=== PATIENT | female | born 1945 | race Caucasian/White ===

== ENCOUNTER 2023-01-14 10:15 | Emergency (ER) | payer OTHER ==
--- OUTSIDE RECORDS SUMMARY | 2023-01-14 10:33 | XMS REPORT | Continuity of Care Document ---
:1945 Author Organization [facility] Address [address] [place] [address] [address] [place] [address] Care Team Providers Name Role Phone Sloan Piper MD Primary Care Physician Carolyn Mendoza Attending Clinician Lab, Ang - Db Attending Clinician Unavailable CAROLYN HUNT Attending Clinician Unavailable Doctor Unassigned, [place] Attending Clinician Unavailable SONJA WHIPPLE Attending Clinician Unavailable SONJA WHIPPLE Attending Clinician Unavailable Mar Perez MD Attending Clinician MAR PEREZ Attending Clinician Unavailable Sonja Whipple DO Attending Clinician KIA HDEZ Attending Clinician Unavailable Kia Hdez MD Attending Clinician Kong Esteban MD Attending Clinician ANNITA EDWARD Attending Clinician Unavailable Annita Edward MD Attending Clinician Cbc, Medicare Wellness Christian Morgan Attending Clinician Unavailab Flora Puri LVN Attending Clinician Unavailable Hussain Viramontes Attending Clinician Unavailable KONG ESTEBAN Attending Clinician Unavailable KONG ESTEBAN Attending Clinician Unavailable , [facility] Bed Attending Clinician Unavailable Joel Vargas Attending Clinician Only, [facility] Test Attending Clinician Unavailable Sloan Piper MD Attending Clinician [facility] Sleep Lab Attending Clinician Unavailable MARISELA NAPIER Attending Clinician Unavailable Marisela Napier MD Attending Clinician Stoney Lee DO Attending Clinician STONEY LEE Attending Clinician Unavailable Alanis Valenzuela RN Attending Clinician Unavailable MD NATHAN CERRATO Attending Clinician Unavailable NATHAN CERRATO Attending Clinician Unavailable MAR PEREZ Admitting Clinician Unavailable ANNITA EDWARD Admitting Clinician Unavailable STONEY LEE Admitting Clinician Unavailable MD NATHAN CERRATO Admitting Clinician Unavailable Payers Payer Name Policy Type Policy Number Effective Date Expiration Date Magaly schroeder [employer] [id number] 2020 MEDICARE ADVANTAGE 00:00:00 Problems Condition Condition Condition Status Onset Resolution Last Treating Co mments Source Name Details Category Date Date Treatment Clinician Date Essential Essential Disease Active 2021-04 Uni vers hypertensi hypertensi 0-06 it y of on on 00:00: [address] Morbid Morbid Disease Active 2021-04 Univers obesity obesity 0-06 ity of 00:00: [address] ROSELINE ROSELINE Disease Active 2021-04 Univers (obstructi (obstructi 0-06 it y of ve sleep ve sleep 00:00: [place] apnea) apnea) 00 [facility] Vitamin D Vitamin D Disease Active 2019-04 Overview: Methodi deficiency deficiency 2-[address] 00:00: [facility] 00 note l might be different from the original. 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 Sister Obesity Obesity Disease Active [facility]i 01-15 st 00:00: Hospita 00 l Osteopenia Osteopenia Disease Active Overview : [facility] [address] 00:00: g of this [facility]ospita 00 note l might be different from the original. 02/12 DXA; No evidence of osteopeni a or osteoporo sis History of History of Disease Active 2014-04 M ethodi bariatric bariatric 0-28 st surgery surgery 00:00: Hospita 00 l Hyperlipid Hyperlipid Disease Active M ethodi emia emia 8 st 00:00: Hospita 00 l HTN HTN Disease Active Overview: Method i (hypertens (hypertens 2-[address] ion) ion) 00:00: g of this Hospita 00 note l might be different from the original. Overview: Converted from [facility] y:Descrip tion - HYPERTENS ION, BENIGN No known No known Disease Unive rs active active ity of problems problems [facility] Allergies, Adverse Reactions, Alerts Allergy Allergy Status Severity Reaction(s) Onset Inactive Treating Comm ents Source Name Type Date Date Clinician AMOXICIL DRUG Active N/V 2021-04 Univers RICO-POT 1-14 ity of CLAVULAN 00:00: [place] ATE 00 Medical Branch Amoxicil Propensi Active Nausea 2021-04 Univer s rico-Pot ty to and/or 14 ity of Clavulan adverse Vomiting 00:00: [place] ate reaction 00 Medical s Branch Aspirin Drug Active Other - See 'feels Univ ers Allergy comments 6-18 funny" ity of 00:00: [place] 00 Medical Branch ASPIRIN DRUG Active Low Other-Cmnt Unive rs INGREDI 6-18 ity of 00:00: [place] 00 Medical Branch Aspartam Propensi Active Headache Meth jacque e ty to 15 st adverse 00:00: Hospita reaction 00 l s to drug NITROFUR DRUG Active Other-Cmnt 2017-04 Univ ers ANTOIN 0-26 ity of MONOHYD/ 00:00: [place] M-CRYST 00 Medical Branch Nitrofur Propensi Active Other - See 2017-04 Nausea U nivers antoin ty to comments 0-26 ity of Monohyd/ adverse 00:00: [place] M-Cryst reaction 00 Medical s Branch Nitrofur Propensi Active 2017-04 Nausea Method i antoin ty to 0-26 st Monohyd/ adverse 00:00: Hospita M-Cryst reaction 00 l s to drug Cephalex Propensi Active Rash Method i in ty to 5 st adverse 00:00: Hospita reaction 00 l s to drug Aspartam Propensi Active Other - See 2014-04 U nivers e ty to comments 0-22 ity of adverse 00:00: [place] reaction 00 Medical s Branch ASPARTAM DRUG Active Med Anaphylaxis 2014-04 Uni vers E INGREDI 0- ity of 00:00: [place] 00 Medical Branch CEPHALEX DRUG Active High Hives Univers IN INGREDI 05-04 ity of 00:00: [place] 00 Medical Branch Cephalex Drug Active Rash CEPHALEXI Unive rs in Allergy 05-04 N: - ity of 00:00: Converted [place] 00 from Medical [facility] y Aspirin Propensi Active Other (See 'feels Met hodi ty to Comments) funny" st adverse Hospita reaction l s to drug Family History Family Member Diagnosis Comments Start Date Stop Date Source Natural sister Other [facility] Natural sister Breast cancer [facility] Natural sister [facility] Natural sister Thyroid cancer [facility] Natural brother Dementia [facility] Natural brother Heart disease Method [facility] father [facility] Natural mother Heart disease [facility] Social History Social Habit Start Date Stop Date Quantity Comments Source History SDOH University o f Alcohol Std Drinks [place] [facility] History SDOH University o f Alcohol Binge [place] [facility] al Branch History SDMA University o f Alcohol Comment [facility] ical Branch Gender identity [facility] Sexual orientation Method is Hospital Exposure to 2022-03-01 2022-03-11 Not sure University of SARS-CoV-2 (event) 00:00:00 10:43:00 [facility] Tobacco use and 2022-01-31 2022-01-31 Smokeless Universit y of exposure 00:00:00 00:00:00 tobacco non-user [facility] dical Branch History SDOH 2021-06-13 2021-06-13 1 University o f Alcohol Frequency 00:00:00 [facility] Alcohol intake 2020-03-31 2020-03-31 Current [facility] 00:00:00 00:00:00 non-drinker of Hospital alcohol (finding) History of Social 2020-03-31 2020-03-[address] function 00:00:00 00:00:00 Hospital Sex [birth year] At [birth year] [facility] 00:[facility]:00 Hospital Smoking Status Start Date Stop Date Source Never smoked tobacco [facility] Medications Ordered Filled Start Stop Current Ordering Indication Dosage Frequency Signature Comments Components Source Medication Medication Date Date Medication? Clinician (SIG) Name Name acetaminochato 0 Yes [id number] 500mg Take 1 Univers en (TYLENOL 8-16 tablet by ity of EXTRA 00:00: mouth [place] STRENGTH) 00 every 6 Medical 500 mg (six) Branch tablet hours as needed for Pain. acetaminoph 0 Yes [id number] 500mg Take 1 Univers en (TYLENOL 8-16 tablet by ity of EXTRA 00:00: mouth [place] STRENGTH) 00 every 6 Medical 500 mg (six) Branch tablet hours as needed for Pain. acetaminoph 0 Yes [id number] 500mg Take 1 Univers en (TYLENOL 8-16 tablet by ity of EXTRA 00:00: mouth [place] STRENGTH) 00 every 6 Medical 500 mg (six) Branch tablet hours as needed for Pain. acetaminoph 0 Yes [id number] 500mg Take 1 Univers en (TYLENOL 8-16 tablet by ity of EXTRA 00:00: mouth [place] STRENGTH) 00 every 6 Medical 500 mg (six) Branch tablet hours as needed for Pain. acetaminoph 2022-0 Yes [id number] 500mg Take 1 Univers en (TYLENOL 8-16 tablet by ity of EXTRA 00:00: mouth [place] STRENGTH) 00 every 6 Medical 500 mg (six) Branch tablet hours as needed for Pain. acetaminoph 0 Yes [id number] 500mg Take 1 Univers en (TYLENOL 8-16 tablet by ity of EXTRA 00:00: mouth [place] STRENGTH) 00 every 6 Medical 500 mg (six) Branch tablet hours as needed for Pain. methylPREDN 2022-0 Yes [id number] Take by Univers ISolone 7-26 mouth ity of (MEDROL, 00:00: SEE-INSTRU [place] AWILDA,) 4 mg 00 CTIONS. Medica l tablets follow Branch package directions losartan 2022-0 Yes [id number] 100mg Take 1 Un kendra 100 mg 7-26 tablet by ity of tablet 00:00: mouth [place] 00 every Medical morning. Branch amLODIPine 3-0 Yes [id number] 10mg Take 1 U nivers 10 mg 7-26 tablet by ity of tablet 00:00: mouth [place] 00 every Medical morning. Branch methylPREDN 3-0 Yes [id number] Take by Univers ISolone 7-26 mouth ity of (MEDROL, 00:00: SEE-INSTRU [place],) 4 mg 00 CTIONS. Medica l tablets follow Branch package directions losartan 2022-0 Yes [id number] 100mg Take 1 Un kendra 100 mg 7-26 tablet by ity of tablet 00:00: mouth [place] 00 every Medical morning. Branch amLODIPine 2022-0 Yes [id number] 10mg Take 1 U nivers 10 mg 7-26 tablet by ity of tablet 00:00: mouth [place] 00 every Medical morning. Branch methylPREDN 2022-0 Yes [id number] Take by Univers ISolone 7-26 mouth ity of (MEDROL, 00:00: SEE-INSTRU [place],) 4 mg 00 CTIONS. Medica l tablets follow Branch package directions losartan 2022-0 Yes [id number] 100mg Take 1 Un kendra 100 mg 7-26 tablet by ity of tablet 00:00: mouth [place] 00 every Medical morning. Branch amLODIPine 2022-0 Yes [id number] 10mg Take 1 U nivers 10 mg 7-26 tablet by ity of tablet 00:00: mouth [place] 00 every Medical morning. Branch methylPREDN 3-0 Yes [id number] Take by Univers ISolone 7-26 mouth ity of (MEDROL, 00:00: SEE-INSTRU [place],) 4 mg 00 CTIONS. Medica l tablets follow Branch package directions losartan 3-0 Yes [id number] 100mg Take 1 Un kendra 100 mg 7-26 tablet by ity of tablet 00:00: mouth [place] 00 every Medical morning. Branch amLODIPine 3-0 Yes [id number] 10mg Take 1 U nivers 10 mg 7-26 tablet by ity of tablet 00:00: mouth [place] 00 every Medical morning. Branch methylPREDN 3-0 Yes [id number] Take by Univers ISolone 7-26 mouth ity of (MEDROL, 00:00: SEE-INSTRU [place],) 4 mg 00 CTIONS. Medica l tablets follow Branch package directions losartan 2022-0 Yes [id number] 100mg Take 1 Un kendra 100 mg 7-26 tablet by ity of tablet 00:00: mouth [place] 00 every Medical morning. Branch amLODIPine 2022-0 Yes [id number] 10mg Take 1 U nivers 10 mg 7-26 tablet by ity of tablet 00:00: mouth [place] 00 every Medical morning. Branch methylPREDN 2022-0 Yes [id number] Take by Univers ISolone 7-26 mouth ity of (MEDROL, 00:00: SEE-INSTRU [place],) 4 mg 00 CTIONS. Medica l tablets follow Branch package directions losartan 2022-0 Yes [id number] 100mg Take 1 Un kendra 100 mg 7-26 tablet by ity of tablet 00:00: mouth [place] 00 every Medical morning. Branch amLODIPine 2022-0 Yes [id number] 10mg Take 1 U nivers 10 mg 7-26 tablet by ity of tablet 00:00: mouth [place] 00 every Medical morning. Branch losartan 2022-0 Yes [id number] 100mg Take 1 Un kendra 100 mg 7-26 tablet by ity of tablet 00:00: mouth [place] 00 every Medical morning. Branch amLODIPine 2022-0 Yes [id number] 10mg Take 1 U nivers 10 mg 7-26 tablet by ity of tablet 00:00: mouth [place] 00 every Medical morning. Branch losartan 2022-0 Yes [id number] 100mg Take 1 Un ekndra 100 mg 7-26 tablet by ity of tablet 00:00: mouth [place] 00 every Medical morning. Branch amLODIPine 3-0 Yes [id number] 10mg Take 1 U nivers 10 mg 7-26 tablet by ity of tablet 00:00: mouth [place] 00 every Medical morning. Branch losartan 3-0 Yes [id number] 100mg Take 1 Un kendra 100 mg 7-26 tablet by ity of tablet 00:00: mouth [place] 00 every Medical morning. Branch amLODIPine 3-0 Yes [id number] 10mg Take 1 U nivers 10 mg 7-26 tablet by ity of tablet 00:00: mouth [place] 00 every Medical morning. Branch losartan 3-0 Yes [id number] 100mg Take 1 Un kendra 100 mg 7-26 tablet by ity of tablet 00:00: mouth [place] 00 every Medical morning. Branch amLODIPine 2022-0 Yes [id number] 10mg Take 1 U nivers 10 mg 7-26 tablet by ity of tablet 00:00: mouth [place] 00 every Medical morning. Branch losartan 2022-0 Yes [id number] 100mg Take 1 Un kendra 100 mg 7-26 tablet by ity of tablet 00:00: mouth [place] 00 every Medical morning. Branch amLODIPine 2022-0 Yes [id number] 10mg Take 1 U nivers 10 mg 7-26 tablet by ity of tablet 00:00: mouth [place] 00 every Medical morning. Branch losartan 2022-0 Yes [id number] 100mg Take 1 Un kendra 100 mg 7-26 tablet by ity of tablet 00:00: mouth [place] 00 every Medical morning. Branch amLODIPine 2022-0 Yes [id number] 10mg Take 1 U nivers 10 mg 7-26 tablet by ity of tablet 00:00: mouth [place] 00 every Medical morning. Branch losartan 2022-0 Yes [id number] 100mg Take 1 Un kendra 100 mg 7-26 tablet by ity of tablet 00:00: mouth [place] 00 every Medical morning. Branch amLODIPine 2022-0 Yes [id number] 10mg Take 1 U nivers 10 mg 7-26 tablet by ity of tablet 00:00: mouth [place] 00 every Medical morning. Branch methylPREDN 2022-2022- No [id number] Take by [facility] 11-20 mouth ity of (MEDROL, 00:00: 00:00 [place] 4 mg 00 :00 CTIONS. Medica l tablets follow Branch package directions methylPREDN 2022- No [id number] Take by [facility] 11-20 mouth ity of (MEDROL, 00:00: 00:00 [place] 4 mg 00 :00 CTIONS. Medica l tablets follow Branch package directions LOSARTAN 2022-0 Yes [id number] TAKE 1 Uni vers 100 mg 6-23 TABLET BY ity of tablet 00:00: MOUTH [place] 00 EVERY DAY Medical IN THE Branch MORNING LOSARTAN 2022-0 Yes [id number] TAKE 1 Uni vers 100 mg 6-23 TABLET BY ity of tablet 00:00: MOUTH [place] 00 EVERY DAY Medical IN THE Branch MORNING LOSARTAN 2022-0 2022- No [id number] TAKE 1 Un kendra 100 mg 6-23 07-26 TABLET BY ity of tablet 00:00: 00:00 MOUTH [place] 00 :00 EVERY DAY Medical IN THE [place] MORNING LOSARTAN 2022-0 2022- No [id number] TAKE 1 Un kendra 100 mg 6-23 07-26 TABLET BY ity of tablet 00:00: 00:00 MOUTH [place] 00 :00 EVERY DAY Medical IN THE [place] MORNING amLODIPine 2022-0 Yes [id number] 10mg TAKE 1 U nivers 10 mg 5-18 TABLET BY ity of tablet 00:00: MOUTH [place] 00 EVERY Medical MORNING. [place] MUST BE SEEN FOR FURTHER REFILLS amLODIPine 0 Yes [id number] 10mg TAKE 1 U nivers 10 mg 5-18 TABLET BY ity of tablet 00:00: MOUTH [place] 00 EVERY Medical MORNING. [place] MUST BE SEEN FOR FURTHER REFILLS amLODIPine 0 Yes [id number] 10mg TAKE 1 U nivers 10 mg 5-18 TABLET BY ity of tablet 00:00: MOUTH [place] 00 EVERY Medical MORNING. [place] MUST BE SEEN FOR FURTHER REFILLS amLODIPine 0 2022- No [id number] 10mg TAKE 1 Univers 10 mg 5-18 07-26 TABLET BY ity of tablet 00:00: 00:00 MOUTH [place] 00 :00 EVERY Medical MORNING. [place] MUST BE SEEN FOR FURTHER REFILLS amLODIPine 0 2022- No [id number] 10mg TAKE 1 Univers 10 mg 5-18 07-26 TABLET BY ity of tablet 00:00: 00:00 MOUTH [place] 00 :00 EVERY Medical MORNING. [place] MUST BE SEEN FOR FURTHER REFILLS LOSARTAN 0 Yes [id number] TAKE 1 Uni vers 100 mg 5-10 TABLET BY ity of tablet 00:00: MOUTH [place] 00 EVERY DAY Medical IN THE [place] MORNING LOSARTAN 2022-0 Yes [id number] TAKE 1 Uni vers 100 mg 5-10 TABLET BY ity of tablet 00:00: MOUTH [place] 00 EVERY DAY Medical IN THE [place] MORNING LOSARTAN 2022-0 2022- No [id number] TAKE 1 Un kendra 100 mg 5-10 06-23 TABLET BY ity of tablet 00:00: 00:00 MOUTH [place] 00 :00 EVERY DAY Medical IN THE [place] MORNING LOSARTAN 2022-0 2022- No [id number] TAKE 1 Un kendra 100 mg 5-10 06-23 TABLET BY ity of tablet 00:00: 00:00 MOUTH [place] 00 :00 EVERY DAY Medical IN THE [place] MORNING amLODIPine 2022-0 Yes [id number] 10mg Take 1 U nivers 10 mg 5-09 tablet by ity of tablet 00:00: mouth [place] 00 every Medical morning. [place] MUST BE SEEN FOR FURTHER REFILLS amLODIPine 2022-0 Yes [id number] 10mg Take 1 U nivers 10 mg 5-09 tablet by ity of tablet 00:00: mouth [place] 00 every Medical morning. [place] MUST BE SEEN FOR FURTHER REFILLS AMLODIPINE 2022-0 Yes [id number] TAKE 1 U nivers 10 mg 4-12 TABLET BY ity of tablet 00:00: MOUTH [place] 00 EVERY DAY Medical IN THE [place] MORNING LOSARTAN 2022-0 Yes [id number] TAKE 1 Uni vers 100 mg 4-12 TABLET BY ity of tablet 00:00: MOUTH [place] 00 EVERY DAY Medical IN THE [facility] AMLODIPINE 2022-0 Yes [id number] TAKE 1 U nivers 10 mg 4-12 TABLET BY ity of tablet 00:00: MOUTH [place] 00 EVERY DAY Medical IN THE [facility] LOSARTAN 2022-0 Yes [id number] TAKE 1 Uni vers 100 mg 4-12 TABLET BY ity of tablet 00:00: MOUTH [place] 00 EVERY DAY Medical IN THE [facility] AMLODIPINE 2022-0 Yes [id number] TAKE 1 U nivers 10 mg 4-12 TABLET BY ity of tablet 00:00: MOUTH [place] 00 EVERY DAY Medical IN THE [facility] LOSARTAN 2022-0 Yes [id number] TAKE 1 Uni vers 100 mg 4-12 TABLET BY ity of tablet 00:00: MOUTH [place] 00 EVERY DAY Medical IN THE [facility] LOSARTAN 2022-0 Yes [id number] TAKE 1 Uni vers 100 mg 4-12 TABLET BY ity of tablet 00:00: MOUTH [place] 00 EVERY DAY Medical IN THE [place] MORNING LOSARTAN 2022-0 3- No [id number] TAKE 1 Un kendra 100 mg 4-12 05-10 TABLET BY ity of tablet 00:00: 00:00 MOUTH [place] 00 :00 EVERY DAY Medical IN THE [place] MORNING AMLODIPINE 2022-0 3- No [id number] TAKE 1 Univers 10 mg 4-12 05-09 TABLET BY ity of tablet 00:00: 00:00 MOUTH [place] 00 :00 EVERY DAY Medical IN THE [facility] calcium 2021- Yes 600mg Take 600 Unive rs carbonate 1-14 mg by ity of 600 mg 11:06: mouth. [place] calcium 17 Medical (1,500 mg) Branch tablet calcium 2021-04 Yes 600mg Take 600 Unive rs carbonate 1-14 mg by ity of 600 mg 11:06: mouth. [place] calcium 17 Medical (1,500 mg) Branch tablet calcium 2021-04 Yes 600mg Take 600 Unive rs carbonate 1-14 mg by ity of 600 mg 11:06: mouth. [place] calcium 17 Medical (1,500 mg) Branch tablet calcium 2021-04 Yes 600mg Take 600 Unive rs carbonate 1-14 mg by ity of 600 mg 11:06: mouth. [place] calcium 17 Medical (1,500 mg) Branch tablet calcium 2021-04 Yes 600mg Take 600 Unive rs carbonate 1-14 mg by ity of 600 mg 11:06: mouth. [place] calcium 17 Medical (1,500 mg) Branch tablet calcium 2021-04 Yes 600mg Take 600 Unive rs carbonate 1-14 mg by ity of 600 mg 11:06: mouth. [place] calcium 17 Medical (1,500 mg) Branch tablet calcium 2021-04 Yes 600mg Take 600 Unive rs carbonate 1-14 mg by ity of 600 mg 11:06: mouth. [place] calcium 17 Medical (1,500 mg) Branch tablet calcium 2021-04 Yes 600mg Take 600 Unive rs carbonate 1-14 mg by ity of 600 mg 11:06: mouth. [place] calcium 17 Medical (1,500 mg) Branch tablet calcium 2021-04 Yes 600mg Take 600 Unive rs carbonate 1-14 mg by ity of 600 mg 11:06: mouth. [place] calcium 17 Medical (1,500 mg) Branch tablet calcium 2021-04 Yes 600mg Take 600 Unive rs carbonate 1-14 mg by ity of 600 mg 11:06: mouth. [place] calcium 17 Medical (1,500 mg) Branch tablet calcium 2021-04 Yes 600mg Take 600 Unive rs carbonate 1-14 mg by ity of 600 mg 11:06: mouth. [place] calcium 17 Medical (1,500 mg) Branch tablet calcium 2021-04 Yes 600mg Take 600 Unive rs carbonate 1-14 mg by ity of 600 mg 11:06: mouth. [place] calcium 17 Medical (1,500 mg) Branch tablet calcium 2021-04 Yes 600mg Take 600 Unive rs carbonate 1-14 mg by ity of 600 mg 11:06: mouth. [place] calcium 17 Medical (1,500 mg) Branch tablet calcium 2021-04 Yes 600mg Take 600 Unive rs carbonate 1-14 mg by ity of 600 mg 11:06: mouth. [place] calcium 17 Medical (1,500 mg) Branch tablet calcium 2021-04 Yes 600mg Take 600 Unive rs carbonate 1-14 mg by ity of 600 mg 11:06: mouth. [place] calcium 17 Medical (1,500 mg) Branch tablet calcium 2021-04 Yes 600mg Take 600 Unive rs carbonate 1-14 mg by ity of 600 mg 11:06: mouth. [place] calcium 17 Medical (1,500 mg) Branch tablet calcium 2021-04 Yes 600mg Take 600 Unive rs carbonate 1-14 mg by ity of 600 mg 11:06: mouth. [place] calcium 17 Medical (1,500 mg) Branch tablet calcium 2021-04 Yes 600mg Take 600 Unive rs carbonate 1-14 mg by ity of 600 mg 11:06: mouth. [place] calcium 17 Medical (1,500 mg) Branch tablet calcium 2021-04 Yes 600mg Take 600 Unive rs carbonate 1-14 mg by ity of 600 mg 11:06: mouth. [place] calcium 17 Medical (1,500 mg) Branch tablet calcium 2021-04 Yes 600mg Take 600 Unive rs carbonate 1-14 mg by ity of 600 mg 11:06: mouth. [place] calcium 17 Medical (1,500 mg) Branch tablet calcium 2021-04 Yes 600mg Take 600 Unive rs carbonate 1-14 mg by ity of 600 mg 11:06: mouth. [place] calcium 17 Medical (1,500 mg) Branch tablet calcium 2021-04 Yes 600mg Take 600 Unive rs carbonate 1-14 mg by ity of 600 mg 11:06: mouth. [place] calcium 17 Medical (1,500 mg) Branch tablet calcium 2021-04 Yes 600mg Take 600 Unive rs carbonate 1-14 mg by ity of 600 mg 11:06: mouth. [place] calcium 17 Medical (1,500 mg) Branch tablet calcium 2021-04 Yes 600mg Take 600 Unive rs carbonate 1-14 mg by ity of 600 mg 11:06: mouth. [place] calcium 17 Medical (1,500 mg) Branch tablet calcium 2021-04 Yes 600mg Take 600 Unive rs carbonate 1-14 mg by ity of 600 mg 11:06: mouth. [place] calcium 17 Medical (1,500 mg) Branch tablet calcium 2021-04 Yes 600mg Take 600 Unive rs carbonate 1-14 mg by ity of 600 mg 11:06: mouth. [place] calcium 17 Medical (1,500 mg) Branch tablet calcium 2021-04 Yes 600mg Take 600 Unive rs carbonate 1-14 mg by ity of 600 mg 11:06: mouth. [place] calcium 17 Medical (1,500 mg) Branch tablet amoxicillin 2021-04 Yes TAKE 1 Univ ers 500 mg 1-03 CAPSULE BY ity of capsule 00:00: MOUTH [place] 00 EVERY 8 Medical HOURS Branch traMADoL 50 2021-04 Yes TAKE 1 Univ ers mg tablet 1-03 TABLET BY ity o f 00:00: MOUTH [place] 00 EVERY 4 TO Medical 6 HOURS. Branch DO NIT EXCEED 400 MG PER DAY amoxicillin 2021-04 Yes TAKE 1 Univ ers 500 mg 1-03 CAPSULE BY ity of capsule 00:00: MOUTH [place] 00 EVERY 8 Medical HOURS Branch traMADoL 50 2021-04 Yes TAKE 1 Univ ers mg tablet 1-03 TABLET BY ity o f 00:00: MOUTH [place] 00 EVERY 4 TO Medical 6 HOURS. Branch DO NIT EXCEED 400 MG PER DAY amoxicillin 2021-04 Yes TAKE 1 Univ ers 500 mg 1-03 CAPSULE BY ity of capsule 00:00: MOUTH [place] 00 EVERY 8 Medical HOURS Branch traMADoL 50 2021-04 Yes TAKE 1 Univ ers mg tablet 1-03 TABLET BY ity o f 00:00: MOUTH [place] 00 EVERY 4 TO Medical 6 HOURS. Branch DO NIT EXCEED 400 MG PER DAY amoxicillin 2021-04 Yes TAKE 1 Univ ers 500 mg 1-03 CAPSULE BY ity of capsule 00:00: MOUTH [place] 00 EVERY 8 Medical HOURS Branch traMADoL 50 2021-04 Yes TAKE 1 Univ ers mg tablet 1-03 TABLET BY ity o f 00:00: MOUTH [place] 00 EVERY 4 TO Medical 6 HOURS. Branch DO NIT EXCEED 400 MG PER DAY amoxicillin 2021-04 Yes TAKE 1 Univ ers 500 mg 1-03 CAPSULE BY ity of capsule 00:00: MOUTH [place] 00 EVERY 8 Medical HOURS Branch traMADoL 50 2021-04 Yes TAKE 1 Univ ers mg tablet 1-03 TABLET BY ity o f 00:00: MOUTH [place] 00 EVERY 4 TO Medical 6 HOURS. Branch DO NIT EXCEED 400 MG PER DAY amoxicillin 2021-04 Yes TAKE 1 Univ ers 500 mg 1-03 CAPSULE BY ity of capsule 00:00: MOUTH [place] 00 EVERY 8 Medical HOURS Branch traMADoL 50 2021-04 Yes TAKE 1 Univ ers mg tablet 1-03 TABLET BY ity o f 00:00: MOUTH [place] 00 EVERY 4 TO Medical 6 HOURS. Branch DO NIT EXCEED 400 MG PER DAY amoxicillin 2021-04 Yes TAKE 1 Univ ers 500 mg 1-03 CAPSULE BY ity of capsule 00:00: MOUTH [place] 00 EVERY 8 Medical HOURS Branch traMADoL 50 2021-04 Yes TAKE 1 Univ ers mg tablet 1-03 TABLET BY ity o f 00:00: MOUTH [place] 00 EVERY 4 TO Medical 6 HOURS. Branch DO NIT EXCEED 400 MG PER DAY amoxicillin 2021-04 Yes TAKE 1 Univ ers 500 mg 1-03 CAPSULE BY ity of capsule 00:00: MOUTH [place] 00 EVERY 8 Medical HOURS Branch traMADoL 50 2021-04 Yes TAKE 1 [facility] mg tablet 1-03 TABLET BY [facility] o f 00:00: MOUTH [place] 00 EVERY 4 TO Medical 6 HOURS. Branch DO NIT EXCEED 400 MG PER DAY amoxicillin 2021-04 Yes TAKE 1 [facility] 500 mg 1-03 CAPSULE BY [facility] capsule 00:00: MOUTH [place] 00 EVERY 8 Medical HOURS Branch traMADoL 50 2021-04 Yes TAKE 1 [facility] mg tablet 1-03 TABLET BY [facility] f 00:00: MOUTH [place] 00 EVERY 4 TO Medical 6 HOURS. Branch DO NIT EXCEED 400 MG PER DAY amoxicillin 2021-04 Yes TAKE 1 [facility] 500 mg 1-03 CAPSULE BY [facility] capsule 00:00: MOUTH [place] 00 EVERY 8 Medical HOURS Branch traMADoL 50 2021-04 Yes TAKE 1 [facility] mg tablet 1-03 TABLET BY [facility] o f 00:00: MOUTH [place] 00 EVERY 4 TO Medical 6 HOURS. Branch DO NIT EXCEED 400 MG PER DAY amoxicillin 2021-04 Yes TAKE 1 [facility] 500 mg 1-03 CAPSULE BY [facility] capsule 00:00: MOUTH [place] 00 EVERY 8 Medical HOURS Branch traMADoL 50 2021-04 Yes TAKE 1 [facility] mg tablet 1-03 TABLET BY [facility] o f 00:00: MOUTH [place] 00 EVERY 4 TO Medical 6 HOURS. Branch DO NIT EXCEED 400 MG PER DAY amoxicillin 2021-04 Yes TAKE 1 [facility] 500 mg 1-03 CAPSULE BY [facility] capsule 00:00: MOUTH [place] 00 EVERY 8 Medical HOURS Branch traMADoL 50 2021-04 Yes TAKE 1 [facility] mg tablet -03 TABLET BY [facility] o f 00:00: MOUTH [place] 00 EVERY 4 TO Medical 6 HOURS. Branch DO NIT EXCEED 400 MG PER DAY amoxicillin 2021-04 Yes TAKE 1 [facility] 500 mg -03 CAPSULE BY [facility] capsule 00:00: MOUTH [place] 00 EVERY 8 Medical HOURS Branch traMADoL 50 2021-04 Yes TAKE 1 [facility] mg tablet -03 TABLET BY [facility] o f 00:00: MOUTH [place] 00 EVERY 4 TO Medical 6 HOURS. Branch DO NIT EXCEED 400 MG PER DAY amoxicillin 2021-04- No TAKE 1 [facility] vers 500 mg 04-30 CAPSULE BY [facility] capsule 00:00: 00:00 MOUTH [place] 00 :00 EVERY 8 Medical HOURS Branch traMADoL 50 2021-04- No TAKE 1 [facility] vers mg tablet 04-30 TABLET BY [facility] of 00:00: 00:00 MOUTH [place] 00 :00 EVERY 4 TO Medical 6 HOURS. Branch DO NIT EXCEED 400 MG PER DAY amoxicillin 2021-04- No TAKE 1 [facility] vers 500 mg 04-30 CAPSULE BY [facility] capsule 00:00: 00:00 MOUTH [place] 00 :00 EVERY 8 Medical HOURS Branch traMADoL 50 2021-04- No TAKE 1 [facility] vers mg tablet 04-30 TABLET BY [facility] of 00:00: 00:00 MOUTH [place] 00 :00 EVERY 4 TO Medical 6 HOURS. Branch DO NIT EXCEED 400 MG PER DAY diclofenac 2021-04 Yes [id number] 75mg Take 1 [facility] 75 mg EC 0-13 9100 tablet by [facility] tablet 00:00: mouth in [place] 00 the Medical morning Branch and 1 tablet in the evening. Take with meals. diclofenac 2021-04 Yes [id number] 75mg Take 1 [facility] 75 mg EC 0-13 9100 tablet by [facility] tablet 00:00: mouth in [place] 00 the Medical morning Branch and 1 tablet in the evening. Take with meals. diclofenac 2021-04 Yes [id number] 75mg Take 1 [facility] 75 mg EC 0-13 9100 tablet by [facility] of tablet 00:00: mouth in [place] 00 the Medical morning Branch and 1 tablet in the evening. Take with meals. diclofenac 2021-04 Yes [id number] 75mg Take 1 [facility] 75 mg EC 0-13 9100 tablet by [facility] of tablet 00:00: mouth in [place] [address] the Medical morning [place] and 1 tablet in the evening. Take with meals. diclofenac 2021-1 Yes [id number] 75mg Take 1 [facility] 75 mg EC 0-13 9100 tablet by [facility] of tablet 00:00: mouth in [place] [address] the Medical morning [place] and 1 tablet in the evening. Take with meals. diclofenac 2021-1 Yes [id number] 75mg Take 1 [facility] 75 mg EC 0-13 9100 tablet by [facility] of tablet 00:00: mouth in [place] [address] the [facility] morning [place] and 1 tablet in the evening. Take with meals. diclofenac 2021-1 Yes [id number] 75mg Take 1 [facility] 75 mg EC 0-13 9100 tablet by [facility] of tablet 00:00: mouth in [place] [address] the [facility] morning [place] and 1 tablet in the evening. Take with meals. diclofenac 2021-1 Yes [id number] 75mg Take 1 [facility] 75 mg EC 0-13 9100 tablet by it[facility] of tablet 00:00: mouth in [address] morning [place] and 1 tablet in the evening. Take with meals. diclofenac 2021-1 Yes [id number] 75mg Take 1 [facility] 75 mg EC 0-13 9100 tablet by it[facility] of tablet 00:00: mouth in [place] [address] the [facility] morning [place] and 1 tablet in the evening. Take with meals. diclofenac 2021-1 Yes [id number] 75mg Take 1 [facility] 75 mg EC 0-13 9100 tablet by it[facility] of tablet 00:00: mouth in [place] [address] the [facility] morning [place] and 1 tablet in the evening. Take with meals. diclofenac 2021-1 Yes [id number] 75mg Take 1 [facility] 75 mg EC 0-13 9100 tablet by it[facility] of tablet 00:00: mouth in [address] morning [place] and 1 tablet in the evening. Take with meals. diclofenac 2021-1 Yes [id number] 75mg Take 1 [facility] 75 mg EC 0-13 9100 tablet by [facility] of tablet 00:00: mouth in [address] morning [place] and 1 tablet in the evening. Take with meals. diclofenac 2021-1 Yes [id number] 75mg Take 1 [facility] 75 mg EC 0-13 9100 tablet by [facility] of tablet 00:00: mouth in [address] morning Branch and 1 tablet in the evening. Take with meals. diclofenac 2021-04 Yes [id number] 75mg Take 1 [facility] 75 mg EC 0-13 9100 tablet by it[facility] of tablet 00:00: mouth in [place] 00 the Medical morning Branch and 1 tablet in the evening. Take with meals. diclofenac 2021-04 Yes [id number] 75mg Take 1 [facility] 75 mg EC 0-13 9100 tablet by [facility] of tablet 00:00: mouth in [place] 00 the morning Branch and 1 tablet in the evening. Take with meals. diclofenac 2021-04- No [id number] 75mg Take 1 [facility] 75 mg EC 0-13 07-26 9100 tablet by ity o f tablet 00:00: 00:00 mouth in [place] 00 :00 the morning Branch and 1 tablet in the evening. Take with meals. diclofenac 2021-04- No [id number] 75mg Take 1 [facility] 75 mg EC 0-13 07-26 9100 tablet by ity o f tablet 00:00: 00:00 mouth in [place] 00 :00 the morning Branch and 1 tablet in the evening. Take with meals. amLODIPine 2021-04 Yes [id number] 10mg Take 1 [facility] 10 mg 0-06 tablet by [facility] of tablet 00:00: mouth in [place] the Medical morning. Branch losartan 2021-04 Yes [id number] 100mg Take 1 [facility] 100 mg 0-06 tablet by [facility] of tablet 00:00: mouth in [place] the Medical morning. Branch amLODIPine 2021-04 Yes [id number] 10mg Take 1 [facility] 10 mg 0-06 tablet by [facility] of tablet 00:00: mouth in [place] the Medical morning. Branch losartan 2021-04 Yes [id number] 100mg Take 1 [facility] 100 mg 0-06 tablet by it[facility] of tablet 00:00: mouth in [place] the Medical morning. Branch amLODIPine 2021-04 Yes [id number] 10mg Take 1 [facility] 10 mg 0-06 tablet by [facility] of tablet 00:00: mouth in [place] 00 the Medical morning. Branch losartan 2021-04 Yes [id number] 100mg Take 1 [facility] 100 mg 0-06 tablet by [facility] of tablet 00:00: mouth in [place] 00 the Medical morning. Branch amLODIPine 2021-04 Yes [id number] 10mg Take 1 [facility] 10 mg 0-06 tablet by [facility] of tablet 00:00: mouth in [place] the Medical morning. Branch losartan 2021-04 Yes [id number] 100mg Take 1 [facility] 100 mg 0-06 tablet by [facility] of tablet 00:00: mouth in [place] the Medical morning. Branch amLODIPine 2021-04 Yes [id number] 10mg Take 1 [facility] 10 mg 0-06 tablet by [facility] of tablet 00:00: mouth in [place] the Medical morning. Branch losartan 2021-04 Yes [id number] 100mg Take 1 [facility] 100 mg 0-06 tablet by [facility] of tablet 00:00: mouth in [place] the Medical morning. Branch amLODIPine 2021-04 Yes [id number] 10mg Take 1 [facility]ivers 10 mg 0-06 tablet by ity of tablet 00:00: mouth in [place] the Medical morning. Branch losartan 2021-04 Yes [id number] 100mg Take 1 [facility] 100 mg 0-06 tablet by [facility] of tablet 00:00: mouth in [place] the Medical morning. Branch amLODIPine 2021-04 Yes [id number] 10mg Take 1 [facility]ivers 10 mg 0-06 tablet by [facility]y of tablet 00:00: mouth in [place] the Medical morning. Branch losartan 2021-04 Yes [id number] 100mg Take 1 [facility] 100 mg 0-06 tablet by [facility] of tablet 00:00: mouth in [place] the Medical morning. Branch amLODIPine 2021-04 Yes [id number] 10mg Take 1 [facility]ivers 10 mg 0-06 tablet by [facility]y of tablet 00:00: mouth in [place] the Medical morning. Branch losartan 2021-04 Yes [id number] 100mg Take 1 [facility] 100 mg 0-06 tablet by [facility] of tablet 00:00: mouth in [place] the Medical morning. Branch amLODIPine 2021-04 Yes [id number] 10mg Take 1 [facility]ivers 10 mg 0-06 tablet by ity of tablet 00:00: mouth in [place] the Medical morning. Branch losartan 2021- Yes [id number] 100mg Take 1 [facility] 100 mg 0-06 tablet by ity of tablet 00:00: mouth in [place] the Medical morning. Branch amLODIPine 2021-04 Yes [id number] 10mg Take 1 [facility]ivers 10 mg 0-06 tablet by ity of tablet 00:00: mouth in [place] 00 the Medical morning. Branch losartan 2021-04 Yes [id number] 100mg Take 1 [facility] 100 mg 0-06 tablet by [facility] of tablet 00:00: mouth in [place] 00 the Medical morning. Branch amLODIPine 2021-04- No [id number] 10mg Take 1 [facility] 10 mg 0-06 04-12 tablet by ity of tablet 00:00: 00:00 mouth in [place] 00 :00 the Medical morning. Branch losartan 2021-04- No [id number] 100mg Take 1 [facility]ivers 100 mg 0-06 04-12 tablet by ity of tablet 00:00: 00:00 mouth in [place] 00 :00 the Medical morning. Branch amLODIPine 2021-2022- No [id number] 10mg Take 1 [facility] 10 mg 0-06 04-12 tablet by ity of tablet 00:00: 00:00 mouth in [place] 00 :00 the Medical morning. Branch losartan 2021-04- No [id number] 100mg Take 1 [facility]ivers 100 mg 0-06 04-12 tablet by ity of tablet 00:00: 00:00 mouth in [place] 00 :00 the Medical morning. Branch amLODIPine 2021-04- No [id number] 10mg Take 1 [facility] 10 mg 0-06 04-12 tablet by ity of tablet 00:00: 00:00 mouth in [place] 00 :00 the Medical morning. Branch losartan 2021-04- No [id number] 100mg Take 1 [facility]ivers 100 mg 0-06 04-12 tablet by ity of tablet 00:00: 00:00 mouth in [place] 00 :00 the Medical morning. Branch AMLODIPINE 2021-0 Yes [id number] 10mg TAKE 1 [facility] nivers 10 mg 9-26 TABLET BY ity of tablet 00:00: MOUTH IN [place] 00 THE Medical MORNING. Branch FOLLOW-UP FOR REFILLS AND FASTING LABS. AMLODIPINE 2021-0 Yes [id number] 10mg TAKE 1 [facility] nivers 10 mg 9-26 TABLET BY ity of tablet 00:00: MOUTH IN [place] 00 THE Medical MORNING. Branch FOLLOW-UP FOR REFILLS AND FASTING LABS. LOSARTAN 2021-0 Yes [id number] 100mg TAKE 1 [facility] 100 mg 9-26 TABLET BY ity of tablet 00:00: MOUTH IN [place] 00 THE Medical MORNING. Branch FOLLOW-UP FOR REFILLS AND FASTING LABS. AMLODIPINE 2021-0 2021- No [id number] 10mg TAKE 1 [facility] 10 mg 9-26 10-06 TABLET BY ity of tablet 00:00: 00:00 MOUTH IN [place] 00 :00 THE Medical MORNING. Branch FOLLOW-UP FOR REFILLS AND FASTING LABS. LOSARTAN 0 2- No [id number] 100mg TAKE 1 [facility] nivers 100 mg 9-26 10-06 TABLET BY ity of tablet 00:00: 00:00 MOUTH IN [place] 00 :00 THE Medical MORNING. Branch FOLLOW-UP FOR REFILLS AND FASTING LABS. AMLODIPINE 2021-0 2021- No [id number] 10mg TAKE 1 [facility] 10 mg 9-26 10-06 TABLET BY ity of tablet 00:00: 00:00 MOUTH IN [place] 00 :00 THE Medical MORNING. Branch FOLLOW-UP FOR REFILLS AND FASTING LABS. LOSARTAN 2021- No [id number] 100mg TAKE 1 [facility] nivers 100 mg 9-26 10-06 TABLET BY ity of tablet 00:00: 00:00 MOUTH IN [place] 00 :00 THE Medical MORNING. Branch FOLLOW-UP FOR REFILLS AND FASTING LABS. losartan 0 Yes [id number] 100mg Take 1 [facility] 100 mg 8-24 tablet by ity of tablet 00:00: mouth in [place] 00 the Medical morning. Branch Follow-up for refills and fasting labs. amLODIPine 2021-0 Yes [id number] 10mg Take 1 [facility] nivers 10 mg 8-24 tablet by ity of tablet 00:00: mouth in [place] 00 the Medical morning. Branch Follow-up for refills and fasting labs. losartan 0 Yes [id number] 100mg Take 1 [facility] 100 mg 8-24 tablet by ity of tablet 00:00: mouth in [place] 00 the Medical morning. Branch Follow-up for refills and fasting labs. amLODIPine 2021-0 2021- No [id number] 10mg Take 1 [facility] 10 mg 8-24 09-26 tablet by ity of tablet 00:00: 00:00 mouth in [place] 00 :00 the Medical morning. Branch Follow-up for refills and fasting labs. losartan 2021-2- No [id number] 100mg Take 1 [facility] nivers 100 mg 8-24 09-26 tablet by ity of tablet 00:00: 00:00 mouth in [place] 00 :00 the Medical morning. Branch Follow-up for refills and fasting labs. amLODIPine 2021-0 Yes [id number] 10mg Take 1 [facility] nivers 10 mg 2-16 tablet by ity of tablet 00:00: mouth [place] 00 daily. Medical Branch losartan 2021-0 Yes [id number] 100mg Take 1 [facility] 100 mg 2-16 tablet by [facility]y of tablet 00:00: mouth [place] 00 daily. Medical Branch amLODIPine 2021-0 Yes [id number] 10mg Take 1 [facility] nivers 10 mg 2-16 tablet by ity of tablet 00:00: mouth [place] 00 daily. Medical Branch losartan 2021-0 Yes [id number] 100mg Take 1 [facility] 100 mg 2-16 tablet by [facility]y of tablet 00:00: mouth [place] 00 daily. Medical Branch amLODIPine 2021-0 Yes [id number] 10mg Take 1 [facility] nivers 10 mg 2-16 tablet by ity of tablet 00:00: mouth [place] 00 daily. Medical Branch losartan 2021-0 Yes [id number] 100mg Take 1 [facility] 100 mg 2-16 tablet by [facility]y of tablet 00:00: mouth [place] 00 daily. Medical Branch amLODIPine 2021-0 2022- No [id number] 10mg Take 1 [facility] 10 mg 2-16 08-24 tablet by ity of tablet 00:00: 00:00 mouth [place] 00 :00 daily. Medical Branch losartan 2021-0 2022- No [id number] 100mg Take 1 [facility] nivers 100 mg 2-16 08-24 tablet by ity of tablet 00:00: 00:00 mouth [place] 00 :00 daily. [facility] Branch calcium 2020-0 Yes 600mg Take 600 Unive rs carbonate 9-15 mg by ity of 600 mg 10:48: mouth. [place] calcium 36 Medical (1,500 mg) Branch tablet calcium 2020-0 Yes 600mg Take 600 Unive rs carbonate 9-15 mg by ity of 600 mg 10:48: mouth. [place] calcium 36 Medical (1,500 mg) Branch tablet calcium 2020-0 Yes 600mg Take 600 Unive rs carbonate 9-15 mg by ity of 600 mg 10:48: mouth. [place] calcium 36 Medical (1,500 mg) Branch tablet calcium 2020-0 Yes 600mg Take 600 Unive rs carbonate 9-15 mg by ity of 600 mg 10:48: mouth. [place] calcium 36 Medical (1,500 mg) Branch tablet calcium 2020-0 Yes 600mg Take 600 Unive rs carbonate 9-15 mg by ity of 600 mg 10:48: mouth. [place] calcium 36 Medical (1,500 mg) Branch tablet calcium 2020-0 Yes 600mg Take 600 Unive rs carbonate 9-15 mg by ity of 600 mg 10:48: mouth. [place] calcium 36 Medical (1,500 mg) Branch tablet calcium 2020-0 Yes 600mg Take 600 Unive rs carbonate 9-15 mg by ity of 600 mg 10:48: mouth. [place] calcium 36 Medical (1,500 mg) Branch tablet calcium 2020-0 Yes 600mg Take 600 Unive rs carbonate 9-15 mg by ity of 600 mg 10:48: mouth. [place] calcium 36 Medical (1,500 mg) Branch tablet calcium 0 Yes 600mg Take 600 Unive rs carbonate 9-15 mg by ity of 600 mg 10:48: mouth. [place] calcium 36 Medical (1,500 mg) Branch tablet calcium 0 Yes 600mg Take 600 Unive rs carbonate 9-15 mg by ity of 600 mg 10:48: mouth. [place] calcium 36 Medical (1,500 mg) Branch tablet calcium 0 Yes 600mg Take 600 Unive rs carbonate 9-15 mg by ity of 600 mg 10:48: mouth. [place] calcium 36 Medical (1,500 mg) Branch tablet amLODIPine 2021- No [id number] 10mg Take 1 [facility] 10 mg 01-10 tablet by ity of tablet 00:00: 00:00 mouth [place] 00 :00 daily. Medical Branch losartan 2021- No [id number] 100mg Take 1 [facility] nivers 100 mg 01-10 tablet by ity of tablet 00:00: 00:00 mouth [place] 00 :00 daily. Medical Branch ondansetron 2021- No [id number] 4mg Take 1 [facility] 4 mg 01-02 tablet by [facility]y of disintegrat 00:00: 00:00 [place] tablet 00 :00 every 12 Medic al (twelve) Branch hours as needed for Nausea and Vomiting (N/V). dicyclomine 2021- No [id number] 10mg Take 1 [facility] 10 mg 01-02 capsule by ity of capsule 00:00: 00:00 mouth 4 [place] 00 :00 (four) Medical times Branch daily as needed for Abdominal pain. amLODIPine Yes TAKE 1 [facility] (NORVASC) 5-[address] 10 mg 00:00[facility] 00 EVERY DAY l losartan Yes TAKE 1 [facility] (COZAAR) 5-[address] 100 MG 00:00: MOUTH [facility] tablet 00 EVERY DAY l amLODIPine Yes TAKE 1 [facility] (NORVASC) 5-[address] 10 mg 00:00: MOUTH [facility] tablet 00 EVERY DAY l losartan Yes TAKE 1 [facility] (COZAAR) 5-[address] 100 MG 00:00: MOUTH [facility] tablet 00 EVERY DAY l amLODIPine 2019-04 No 10mg QD Take 1 Meth jacque (NORVASC) 2-04 05-30 tablet (10 st 10 mg 00:00: 00:00 mg total) Hospit a tablet 00 :00 by mouth l daily. losartan 2019-04 No 100mg QD Take 1 [facility] (COZAAR) 2-04 05-[address] 100 MG 00:00: 00:00 (100 mg [facility] tablet 00 :00 total) by l mouth daily. Immunizations Ordered Immunization Filled Immunization Date Status Commen ts Source Name Name Pneumococcal 2018-01-15 Completed [place] o f Polysaccharide, 00:00:00 [place] [facility] ical PPSV23 (PNEUMOVAX) Branch Pneumococcal 2018-01-15 Completed [place] o f Polysaccharide, 00:00:00 [place] Med ical PPSV23 (PNEUMOVAX) Branch Pneumococcal 2018-01-15 Completed [facility] f Polysaccharide, 00:00:00 [place] [facility] ical PPSV23 (PNEUMOVAX) Branch Pneumococcal 2018-01-15 Completed [facility] o f Polysaccharide, 00:00:00 [place] [facility] ical PPSV23 (PNEUMOVAX) Branch Pneumococcal 2018-01-15 Completed [facility] o f Polysaccharide, 00:00:00 [place] [facility] ical PPSV23 (PNEUMOVAX) Branch Pneumococcal 2018-01-15 Completed [facility] o f Polysaccharide, 00:00:00 [place] Med ical PPSV23 (PNEUMOVAX) Branch Pneumococcal 2018-01-15 Completed [facility] o f Polysaccharide, 00:00:00 [place] Med ical PPSV23 (PNEUMOVAX) Branch Pneumococcal 2018-01-15 Completed [facility] o f Polysaccharide, 00:00:00 [place] Med ical PPSV23 (PNEUMOVAX) Branch Pneumococcal 2018-01-15 Completed [facility] o f Polysaccharide, 00:00:00 [place] Med ical PPSV23 (PNEUMOVAX) Branch Pneumococcal 2018-01-15 Completed [facility] o f Polysaccharide, 00:00:00 [place] Med ical PPSV23 (PNEUMOVAX) Branch Pneumococcal 2018-01-15 Completed [facility] o f Polysaccharide, 00:00:00 [place] Med ical PPSV23 (PNEUMOVAX) Branch Pneumococcal 2018-01-15 Completed [facility] o f Polysaccharide, 00:00:00 [place] Med ical PPSV23 (PNEUMOVAX) Branch Pneumococcal 2018-01-15 Completed [facility] o f Polysaccharide, 00:00:00 [place] [facility] ical PPSV23 (PNEUMOVAX) Branch Pneumococcal 2018-01-15 Completed [facility] o f Polysaccharide, 00:00:00 [place] [facility] ical PPSV23 (PNEUMOVAX) Branch Pneumococcal 2018-01-15 Completed [facility] o f Polysaccharide, 00:00:00 [place] [facility] ical PPSV23 (PNEUMOVAX) Branch Pneumococcal 2018-01-15 Completed [facility] o f Polysaccharide, 00:00:00 [place] [facility] ical PPSV23 (PNEUMOVAX) Branch Pneumococcal 2018-01-15 Completed [facility] o f Polysaccharide, 00:00:00 [place] [facility] ical PPSV23 (PNEUMOVAX) Branch Pneumococcal 2018-01-15 Completed [facility] o f Polysaccharide, 00:00:00 [place] [facility] ical PPSV23 (PNEUMOVAX) Branch Pneumococcal 2018-01-15 Completed [facility] o f Polysaccharide, 00:00:00 [place] [facility] ical PPSV23 (PNEUMOVAX) Branch Pneumococcal 2018-01-15 Completed [facility] o f Polysaccharide, 00:00:00 [place] Med ical PPSV23 (PNEUMOVAX) Branch Pneumococcal 2018-01-15 Completed [facility] o f Polysaccharide, 00:00:00 [place] Med ical PPSV23 (PNEUMOVAX) Branch Pneumococcal 2018-01-15 Completed [facility] o f Polysaccharide, 00:00:00 [place] [facility] ical PPSV23 (PNEUMOVAX) Branch Pneumococcal 2018-01-15 Completed [facility] o f Polysaccharide, 00:00:00 [place] [facility] ical PPSV23 (PNEUMOVAX) Branch Pneumococcal 2018-01-15 Completed [facility] o f Polysaccharide, 00:00:00 [place] Med ical PPSV23 (PNEUMOVAX) Branch Pneumococcal 2018-01-15 Completed [facility] o f Polysaccharide, 00:00:00 [place] Med ical PPSV23 (PNEUMOVAX) Branch Pneumococcal 2018-01-15 Completed [facility] o f Polysaccharide, 00:00:00 [place] Med ical PPSV23 (PNEUMOVAX) Branch Pneumococcal 2018-01-15 Completed [facility] o f Polysaccharide, 00:00:00 [place] Med ical PPSV23 (PNEUMOVAX) Branch Pneumococcal 2018-01-15 Completed [facility] o f Polysaccharide, 00:00:00 [place] Med ical PPSV23 (PNEUMOVAX) Branch Pneumococcal 2018-01-15 Completed [facility] o f Polysaccharide, 00:00:00 [place] Med ical PPSV23 (PNEUMOVAX) Branch Pneumococcal 2018-01-15 Completed [facility] o f Polysaccharide, 00:00:00 [place] Med ical PPSV23 (PNEUMOVAX) Branch Pneumococcal 2018-01-15 Completed [facility] o f Polysaccharide, 00:00:00 [place] Med ical PPSV23 (PNEUMOVAX) Branch Pneumococcal 2018-01-15 Completed [facility] o f Polysaccharide, 00:00:00 [place] Med ical PPSV23 (PNEUMOVAX) Branch Pneumococcal 2018-01-15 Completed [facility] o f Polysaccharide, 00:00:00 [place] Med ical PPSV23 (PNEUMOVAX) Branch Pneumococcal 2018-01-15 Completed [facility] o f Polysaccharide, 00:00:00 [place] [facility] ical PPSV23 (PNEUMOVAX) Branch Pneumococcal 2018-01-15 Completed [facility] o f Polysaccharide, 00:00:00 [place] [facility] ical PPSV23 (PNEUMOVAX) Branch Pneumococcal 2018-01-15 Completed [facility] o f Polysaccharide, 00:00:00 [place] Med ical PPSV23 (PNEUMOVAX) Branch Pneumococcal 2018-01-15 Completed [facility] o f Polysaccharide, 00:00:00 [place] Med ical PPSV23 (PNEUMOVAX) Branch Pneumococcal 2018-01-15 Completed [facility] o f Polysaccharide, 00:00:00 [place] [facility] ical PPSV23 (PNEUMOVAX) Branch Pneumococcal 2018-01-15 Completed [facility] Pol[facility] 00:[facility]:00 [facility] Pneumococcal 2018-01-15 Completed [facility] Polysaccharide 00:00:00 [facility] Pneumococcal 13 2017-04-14 Completed [facility] of Conjugate, PCV13 00:00:00 [place] [facility] (Prevnar 13) Branch Pneumococcal 13 2017-04-14 Completed [facility] y of Conjugate, PCV13 00:00:00 [place] [facility] (Prevnar 13) Branch Pneumococcal 13 2017-04-14 Completed [facility] of Conjugate, PCV13 00:00:00 [place] [facility] (Prevnar 13) Branch Pneumococcal 13 2017-04-14 Completed [facility] of Conjugate, PCV13 00:00:00 [place] [facility] (Prevnar 13) Branch Pneumococcal 13 2017-04-14 Completed [facility] of Conjugate, PCV13 00:00:00 [place] [facility] (Prevnar 13) Branch Pneumococcal 13 2017-04-14 Completed [facility] of Conjugate, PCV13 00:00:00 [place] [facility] (Prevnar 13) Branch Pneumococcal 13 2017-04-14 Completed [facility] y of Conjugate, PCV13 00:00:00 [place] [facility] (Prevnar 13) Branch Pneumococcal 13 2017-04-14 Completed [facility] of Conjugate, PCV13 00:00:00 [place] [facility] (Prevnar 13) Branch Pneumococcal 13 2017-04-14 Completed [facility] y of Conjugate, PCV13 00:00:00 [place] [facility] (Prevnar 13) Branch Pneumococcal 13 2017-04-14 Completed [facility] y of Conjugate, PCV13 00:00:00 [place] [facility] (Prevnar 13) Branch Pneumococcal 13 2017-04-14 Completed [facility] of Conjugate, PCV13 00:00:00 [place] [facility] (Prevnar 13) Branch Pneumococcal 13 2017-04-14 Completed [facility] y of Conjugate, PCV13 00:00:00 [place] [facility] (Prevnar 13) Branch Pneumococcal 13 2017-04-14 Completed [facility] y of Conjugate, PCV13 00:00:00 [place] [facility] (Prevnar 13) Branch Pneumococcal 13 2017-04-14 Completed [facility] of Conjugate, PCV13 00:00:00 [place] [facility] (Prevnar 13) Branch Pneumococcal 13 2017-04-14 Completed [facility] of Conjugate, PCV13 00:00:00 [place] [facility] (Prevnar 13) Branch Pneumococcal 13 2017-04-14 Completed [facility] y of Conjugate, PCV13 00:00:00 [place] [facility] (Prevnar 13) Branch Pneumococcal 13 2017-04-14 Completed [facility] of Conjugate, PCV13 00:00:00 [place] [facility] (Prevnar 13) Branch Pneumococcal 13 2017-04-14 Completed [facility] of Conjugate, PCV13 00:00:00 [place] [facility] (Prevnar 13) Branch Pneumococcal 13 2017-04-14 Completed [facility] of Conjugate, PCV13 00:00:00 [place] [facility] (Prevnar 13) Branch Pneumococcal 13 2017-04-14 Completed [facility] of Conjugate, PCV13 00:00:00 [place] [facility] (Prevnar 13) Branch Pneumococcal 13 2017-04-14 Completed [facility] y of Conjugate, PCV13 00:00:00 [place] [facility] (Prevnar 13) Branch Pneumococcal 13 2017-04-14 Completed [facility] y of Conjugate, PCV13 00:00:00 [place] [facility] (Prevnar 13) Branch Pneumococcal 13 2017-04-14 Completed [facility] y of Conjugate, PCV13 00:00:00 [place] [facility] (Prevnar 13) Branch Pneumococcal 13 2017-04-14 Completed [facility] y of Conjugate, PCV13 00:00:00 [place] [facility] (Prevnar 13) Branch Pneumococcal 13 2017-04-14 Completed [facility] y of Conjugate, PCV13 00:00:00 [place] [facility] (Prevnar 13) Branch Pneumococcal 13 2017-04-14 Completed [facility] y of Conjugate, PCV13 00:00:00 [place] [facility] (Prevnar 13) Branch Pneumococcal 13 2017-04-14 Completed [facility] y of Conjugate, PCV13 00:00:00 [place] [facility] (Prevnar 13) Branch Pneumococcal 13 2017-04-14 Completed [facility] y of Conjugate, PCV13 00:00:00 [place] [facility] (Prevnar 13) Branch Pneumococcal 13 2017-04-14 Completed [facility] y of Conjugate, PCV13 00:00:00 [place] [facility] (Prevnar 13) Branch Pneumococcal 13 2017-04-14 Completed Universit y of Conjugate, PCV13 00:00:00 [place] [facility] (Prevnar 13) Branch Pneumococcal 13 2017-04-14 Completed Universit y of Conjugate, PCV13 00:00:00 [place] [facility] (Prevnar 13) [facility] Pneumococcal 13 2017-04-14 Completed Universit y of Conjugate, PCV13 00:00:00 [place] [facility] (Prevnar 13) Branch Pneumococcal 13 2017-04-14 Completed Universit y of Conjugate, PCV13 00:00:00 [place] [facility] (Prevnar 13) [facility] Pneumococcal 13 2017-04-14 Completed Universit y of Conjugate, PCV13 00:00:00 [place] [facility] (Prevnar 13) Branch Pneumococcal 13 2017-04-14 Completed Universit y of Conjugate, PCV13 00:00:00 [place] [facility] (Prevnar 13) Branch Pneumococcal 13 2017-04-14 Completed Universit y of Conjugate, PCV13 00:00:00 [place] [facility] (Prevnar 13) Branch Pneumococcal 13 2017-04-14 Completed Universit y of Conjugate, PCV13 00:00:00 [place] [facility] (Prevnar 13) [facility] Pneumococcal 13 2017-04-14 Completed Universit y of Conjugate, PCV13 00:00:00 [place] [facility] (Prevnar 13) [facility] Pneumococcal 2017-04-14 Completed [facility] Conjugate 13-Valent 00:00:00 Hospi eunice Pneumococcal 2017-04-14 Completed [facility] Conjugate 13-Valent 00:00:00 Hospi eunice TDAP 2011-10-27 Completed University of 00:00:00 [facility] TDAP 2011-10-27 Completed University of 00:00:00 [facility] TDAP 2011-10-27 Completed University of 00:00:00 [facility] TDAP 2011-10-27 Completed University of 00:00:00 [facility] TDAP 2011-10-27 Completed University of 00:00:00 [facility] TDAP 2011-10-27 Completed University of 00:00:00 [facility] TDAP 2011-10-27 Completed University of 00:00:00 [facility] TDAP 2011-10-27 Completed University of 00:00:00 [facility] TDAP 2011-10-27 Completed University of 00:00:00 [facility] TDAP 2011-10-27 Completed University of 00:00:00 [facility] TDAP 2011-10-27 Completed University of 00:00:00 [facility] TDAP 2011-10-27 Completed University of 00:00:00 [facility] TDAP 2011-10-27 Completed University of 00:00:00 [facility] TDAP 2011-10-27 Completed University of 00:00:00 [facility] TDAP 2011-10-27 Completed University of 00:00:00 [facility] TDAP 2011-10-27 Completed University of 00:00:00 [facility] TDAP 2011-10-27 Completed University of 00:00:00 [facility] Branch TDAP 2011-10-27 Completed University of 00:00:00 [facility] TDAP 2011-10-27 Completed University of 00:00:00 [facility] TDAP 2011-10-27 Completed University of 00:00:00 [facility] TDAP 2011-10-27 Completed University of 00:00:00 [facility] TDAP 2011-10-27 Completed University of 00:00:00 [facility] TDAP 2011-10-27 Completed University of 00:00:00 [facility] TDAP 2011-10-27 Completed University of 00:00:00 [facility] TDAP 2011-10-27 Completed University of 00:00:00 [facility] TDAP 2011-10-27 Completed University of 00:00:00 [facility] TDAP 2011-10-27 Completed University of 00:00:00 [facility] TDAP 2011-10-27 Completed University of 00:00:00 [facility] TDAP 2011-10-27 Completed University of 00:00:00 [facility] TDAP 2011-10-27 Completed University of 00:00:00 [facility] TDAP 2011-10-27 Completed University of 00:00:00 [facility] TDAP 2011-10-27 Completed University of 00:00:00 [facility] TDAP 2011-10-27 Completed University of 00:00:00 [facility] TDAP 2011-10-27 Completed University of 00:00:00 [facility] TDAP 2011-10-27 Completed University of 00:00:00 [facility] TDAP 2011-10-27 Completed University of 00:00:00 [facility] TDAP 2011-10-27 Completed University of 00:00:00 [facility] TDAP 2011-10-27 Completed University of 00:00:00 [facility] Tdap 2011-10-27 Completed [facility] 00:00:00 Hospital Tdap 2011-10-27 Completed [facility] 00:00:00 Hospital Vital Signs Vital Name Observation Time Observation Value Comments Source Systolic blood 2022-12-11 14:28:00 130 mm[Hg] Univer sity of pressure [facility] Diastolic blood 2022-12-11 14:28:00 80 mm[Hg] Unive rsity of pressure [facility] Heart rate 2022-12-11 14:14:00 80 /min [facility] [place] [facility] Body temperature 2022-12-11 14:14:00 36.78 Karen Univ ersity of [facility] Body height 2022-12-11 14:14:00 157.5 cm Universi [facility] [place] [facility] Body weight 2022-12-11 14:14:00 102.377 kg [facility] [place] [facility] BMI 2022-12-11 14:14:00 41.28 kg/m2 [facility] [place] [facility] Oxygen saturation in 2022-12-11 14:14:00 95 /min University of Arterial blood by [facility] Pulse oximetry Branch Systolic blood 2022-11-20 18:54:00 139 mm[Hg] Univer sity of pressure [facility] Diastolic blood 2022-11-20 18:54:00 83 mm[Hg] Unive rsity of pressure [facility] Heart rate 2022-11-20 18:54:00 92 /min [facility]i [facility] Body height 2022-11-20 18:54:00 157.5 cm [facility]i [facility] Body weight 2022-11-20 18:54:00 104.01 kg [facility] [place] [facility] BMI 2022-11-20 18:54:00 41.94 kg/m2 [facility] Oxygen saturation in 2022-11-20 18:54:00 95 /min University of Arterial blood by [facility] Pulse oximetry Branch Systolic blood 2022-03-11 17:10:00 125 mm[Hg] Univer sity of pressure [facility] Diastolic blood 2022-03-11 17:10:00 77 mm[Hg] Unive rsity of pressure [facility] Heart rate 2022-03-11 17:10:00 99 /min Universi [facility] Body height 2022-03-11 17:10:00 159.4 cm [facility] Body weight 2022-03-11 17:10:00 105.053 kg [facility] [place] [facility] BMI 2022-03-11 17:10:00 41.35 kg/m2 [facility] Oxygen saturation in 2022-03-11 17:10:00 95 /min University of Arterial blood by [facility] Pulse oximetry Branch Body height 2022-02-07 13:17:00 157.5 cm Universi ty [facility] Body weight 2022-02-07 13:17:00 102.059 kg Universi ty [facility] BMI 2022-02-07 13:17:00 41.15 kg/m2 Universi ty [facility] Systolic blood 2022-01-31 15:22:00 144 mm[Hg] Univer sity of pressure [facility] Diastolic blood 2022-01-31 15:22:00 84 mm[Hg] Unive rsity of pressure [facility] Heart rate 2022-01-31 15:21:00 91 /min Universi ty of [facility] Body height 2022-01-31 15:21:00 157.5 cm Universi ty [facility] Body weight 2022-01-31 15:21:00 103.329 kg Universi ty [facility] BMI 2022-01-31 15:21:00 41.67 kg/m2 Universi [facility] Oxygen saturation in 2022-01-31 15:21:00 97 /min [facility] Arterial blood by [facility] Pulse oximetry Branch Procedures Procedure Date / Time Performing Clinician Source Performed [facility] PATIENT FINANCIAL 2022-12-11 14:10:35 Doctor Unassigned, No [facility] DME/SUPPLY JUSTIFICATION 2021-10-15 05:01:00 Doctor Unassigned, No [facility] DME/SUPPLY JUSTIFICATION 2021-09-19 05:01:00 Doctor Unassigned, No [facility] Plan of Care Planned Activity Planned Date Details Comments Source Future Scheduled 2022-12-31 Screening for [facility] Test 20:09:45 malignant neoplasm of colon (procedure) [code = 463673537] Future Scheduled 2022-12-31 Screening for [facility] Test 20:09:45 malignant neoplasm of colon (procedure) [code = 893138679] Future Scheduled 2022-12-31 Screening for [facility] Test 20:09:45 malignant neoplasm of colon (procedure) [code = 625910622] Future Scheduled 2022-12-31 COVID-19 VACCINE (#1) [facility] Test 20:09:45 [code = COVID-19 VACCINE (#1)] Future Scheduled 2022-12-31 SHINGLES VACCINES (1 Met [facility] Test 20:09:45 of 2) [code = SHINGLES VACCINES (1 of 2)] Future Scheduled 2022-12-31 Screening for [facility] Test 20:09:45 malignant neoplasm of colon (procedure) [code = 200315404] Future Scheduled 2022-12-31 Screening for [facility] Test 20:09:45 malignant neoplasm of colon (procedure) [code = 256654682] Future Scheduled 2022-12-31 BREAST CANCER [facility] Test 20:09:45 SCREENING [code = BREAST CANCER SCREENING] Future Scheduled 2022-12-31 DXA SCAN [code = DXA [facility] Test 20:09:45 SCAN] Future Scheduled 2022-12-31 INFLUENZA VACCINE [facility] Test 20:09:45 (#1) [code = INFLUENZA VACCINE (#1)] Future Scheduled 2021-04-12 COLONOSCOPY SCREENING [facility] Test 04:05:22 [code = COLONOSCOPY SCREENING] Future Scheduled 2021-04-12 COVID-19 VACCINE (1) [facility] Test 04:05:22 [code = COVID-19 VACCINE (1)] Future Scheduled 2021-04-12 SHINGLES VACCINES [facility] Test 04:05:22 (#1) [code = SHINGLES VACCINES (#1)] Future Scheduled 2021-04-12 INFLUENZA VACCINE [facility] Test 04:05:22 [code = INFLUENZA VACCINE] Future Scheduled 2021-04-12 DXA SCAN [code = DXA [facility] Test 04:05:22 SCAN] Future Scheduled 2021-04-12 BREAST CANCER [facility] Test 04:05:22 SCREENING [code = BREAST CANCER SCREENING] Encounters Start End Encounter Admission Attending Care Care Encounter Source Date/Time Date/Time Type Type Clinicians Facility Department ID 2021-02-26 Emergency [facility] [id number] Univers 20:48:57 ity [facility] 2022-12-17 2022-12-17 [facility] 1.2.840.114 [id number] Univers 00:00:00 00:00:00 Secure [facility] [employer] 350.1.13.10 ity [facility] 4.2.7.2.686 Hayden as JERSON?BLEA [id number] [address] OFFICE [facility] 2022-12-17 2022-12-17 Patient Gavi, [facility] 1.2.840.114 [id number] Univers 00:00:00 00:00:00 Secure Msg Carolyn A HEALTH 350.1.13.10 ity of [place] 4.2.7.2.686 Hayden as JERSON?BLEA [id number] [address] OFFICE [facility] 2022-12-11 2022-12-11 Raw Products Director Lab, Ang - Db [facility] 1.2.840.1 14 [id number] Univers 10:00:00 10:15:00 Visit Gavi, Carolyn A HEALTH 350.1.13.10 ity of [place] 4.2.7.2.686 Hayden as JERSON?BLEA [phone] [address] OFFICE [facility] 2022-12-11 2022-12-11 Office Gavi, [facility] 1.2.840.114 [id number] Univers 09:30:00 10:02:52 Visit Carolyn A HEALTH 350.1.13.10 i ty of [place] 4.2.7.2.686 Hayden as JERSON?BLEA [id number] [address] OFFICE [facility] 2022-12-11 2022-12-11 Outpatient R GAVI, [facility] [id number] Univers 10:00:00 10:00:00 CAROLYN ity of [facility] 2022-12-11 2022-12-11 Orders Doctor SHANNAN 1.2.840.114 [id number] Univers 00:00:00 00:00:00 Only Unassigned, ADOLFO 350.1.13.10 ity of [facility] [facility] 4.2.7.2.686 Hayden as [phone] [address] 2022-11-22 2022-11-22 Patient Gavi, [facility] 1.2.840.114 [id number] Univers 00:00:00 00:00:00 Secure Msg Carolyn A HEALTH 350.1.13.10 ity of [place] 4.2.7.2.686 Hayden as JERSON?BLEA [id number] [address] OFFICE [facility] 2022-11-20 2022-11-[address] [facility] 1.2.840.114 [id number] Univers 14:45:18 23:59:00 Encounter Carolyn A [facility] 350.1.13.10 [facility] 4.2.7.2.686 [place] as JERSON?BLEA [id number] [address] OFFICE [facility] 2022-11-20 2022-11-[address] [facility] 1.2.840.114 [id number] Univers 14:00:00 14:45:30 Visit Carolyn A HEALTH 350.1.13.10 i ty of [place] 4.2.7.2.686 Hayden as JERSON?BLEA [phone] [address] OFFICE [facility] 2022-11-20 2022-11-[address] [facility] [id number] Univers 14:45:00 14:45:00 CAROLYN ity of [facility] 2022-11-20 2022-11-20 [facility] 1.2.840.114 [id number] Univers 14:45:00 14:45:00 Encounter Carolyn A HEALTH 350.1.13.10 ity of [place] 4.2.7.2.686 Hayden as JERSON?BLEA [id number] [address] OFFICE [facility] 2022-10-23 2022-10-23 Emergency X [facility] ERT [id number] Univers 13:40:00 13:48:00 ity of [facility] 2022-10-18 2022-10-[address] [facility] 1.2.840.114 [id number] Univers 00:00:00 00:00:00 Carolyn A HEALTH 350.1.13.10 i ty of [place] 4.2.7.2.686 Hayden as JERSON?BLEA [id number] [address] OFFICE [facility] 2022-09-19 2022-09-[facility] 1.[facility].840.114 [id number] Univers 00:00:00 00:00:00 Carolyn A HEALTH 350.1.13.10 i ty of [place] 4.2.7.2.686 Hayden as JERSON?BLEA [id number] [address] 2022-09-03 2022-09-03 [facility] 1.2.840.114 [id number] Univers 00:00:00 00:00:00 Carolyn A HEALTH 350.1.13.10 i ty of [place] 4.2.7.2.686 Hayden as JERSON?BLEA [id number] [address] 2022-09-03 2022-09-[address] [facility] 1.2.840.114 [id number] Univers 00:00:00 00:00:00 Carolyn A HEALTH 350.1.13.10 [facility] 4.2.7.2.686 [place] as JERSON?BLEA [id number] [address] 2022-08-28 2022-08-28 Outpatient Patrick HUNT [facility] [id number] Univers 13:00:00 13:00:00 CAROLYN ity of [facility] 2022-08-02 2022-08-02 [facility] 1.2.840.114 [id number] Univers 00:00:00 00:00:00 Carolyn A HEALTH 350.1.13.10 i ty of [place] 4.2.7.2.686 Hayden as JERSON?BLEA [id number] [address] 2022-06-10 2022-06-10 Outpatient R SONJA WHIPPLE [facility] [id number] Univers 10:30:00 10:30:00 SONJA WHIPPLE i ty of [facility] 2022-05-02 2022-05-02 [facility] YENNIFER Perez 1.2.840.114 [id number] Univers 08:22:00 23:59:00 Encounter Mar Yepez 350.1.13.10 ity of [place] 4.2.7.2.686 Hayden as [id number] [address] 2022-05-02 2022-05-02 Outpatient R ANA [facility] ACO [id number] Univers 00:00:00 23:59:00 MAR alvarado [facility] 2022-03-13 2022-03-13 Patient Gavi [facility] 1.2.840.114 [id number] Univers 00:00:00 00:00:00 Secure Msg Carolyn Lizzy HEALTH 350.1.13.10 ity of [place] 4.2.7.2.686 Hayden as JERSON?BLEA [id number] Wi damian VILLATORO 044 [facility] OFFICE [facility] 2022-03-11 2022-03-11 Office [facility] 1.2.840.114 [id number] Univers 11:00:00 11:30:40 Visit Sonja JEFFERSON 350.1.13.10 i ty of [place].2.7.2.[place] [id number] Me damian PERALTA 085 [facility] 2022-03-11 2022-03-11 Outpatient R SONJA WHIPPLE [facility] 10 [id number] Univers 11:00:00 11:30:40 SONJA WHIPPLE i ty of [facility] 2022-02-07 2022-02-07 Office [facility] 1.2.250.147 [id number] Univers 08:45:00 08:45:00 Visit Kia Christian HEALTH 350.1.13.10 it y of [place] 4.2.7.2.686 Hayden as JERSON?BLEA [id number] Wi damian VILLATORO 198 [facility] OFFICE [facility] 2022-02-07 2022-02-07 Outpatient R LEMUEL [facility] [id number] Univers 08:45:00 08:38:13 KIA alvarado [facility] 2022-01-31 2022-01-31 Outpatient R GAVI [facility] [id number] Univers 11:15:00 23:59:00 CAROLYN alvarado [facility] 2022-01-31 2022-01-31 Raw Products Director Lab, Ang - Margarito [facility] 1.2.840.1 14 [id number] Univers 11:00:00 11:15:00 Visit Carolyn Hunt HEALTH 350.1.13.10 ity of [place] 4.2.7.2.686 Hayden as JERSON?BLEA [id number] [facility] MENDY [address] MEDICAL OFFICE BUILDING 2022-01-31 2022-01-31 [facility] 1.2.840.114 [id number] Univers 10:30:00 11:00:00 Visit Carolyn A HEALTH 350.1.13.10 i ty of [place] 4.2.7.2.686 Hayden as JERSON?BLEA [id number] [address] MEDICAL OFFICE [facility] 2022-01-11 2022-01-11 [facility] 1.2.840.114 [id number] Univers 00:00:00 00:00:00 Carolyn A HEALTH 350.1.13.10 i ty of [place] 4.2.7.2.686 Hayden as JERSON?BLEA [id number] [address] MEDICAL OFFICE [facility] 2022-01-11 2022-01-11 [facility] 1.2.840.114 [id number] Univers 00:00:00 00:00:00 Carolyn A HEALTH 350.1.13.10 i ty of [place] 4.2.7.2.686 Hayden as JERSON?BLEA [id number] [address] MEDICAL OFFICE [facility] 2021-12-14 2021-12-14 [facility] 1.2.840.114 [id number] Univers 00:00:00 00:00:00 Carolyn A HEALTH 350.1.13.10 i ty of [place] 4.2.7.2.686 Hayden as JERSON?BLEA [id number] [address] MEDICAL OFFICE [facility] 2021-10-15 2021-10-15 Orders Doctor SHANANN 1.2.840.114 [id number] Univers 00:00:00 00:00:00 Only Unassigned, ADOLFO 350.1.13.10 ity of [facility] 4.2.7.2.686 Hayden as [phone] [address] 2021-09-27 2021-09-27 [facility] [id number] Univers 16:00:00 16:00:00 CAROLYN ity of [facility] 2021-09-19 2021-09-19 Orders Doctor SHANNAN 1.2.840.114 [id number] Univers 00:00:00 00:00:00 Only Unassigned, ADOLFO 350.1.13.10 ity of [place] [facility] 4.2.7.2.686 Hayden as [phone] [facility] [address] 2021-08-17 2021-08-17 [facility] 1.2.840.114 [id number] Univers 00:00:00 00:00:00 Kong JEFFERSON 350.1.13.10 ity of [place].2.[place] [id number] [place] [id number] [facility] 2021-07-18 2021-07-18 Outpatient [facility] [id number] Univers 13:34:37 23:59:00 ANNITA ity [facility] 2021-07-18 2021-07-18 [facility] 1.2.176.302 [id number] Univers 13:20:00 23:59:00 Encounter Annita JEFFERSON 350.1.13.10 ity of [place] [facility] 4.2.7.2.686 [facility] [id number] [facility] [address] 2021-07-18 2021-07-18 Orders Doctor CAMPBELL 1.2.840.114 [id number] Univers 00:00:00 00:00:00 Only Unassigned, ADOLFO 350.1.13.10 ity of [place] [facility] 4.2.7.2.686 Hayden as [id number] [facility] [address] 2021-06-13 2021-06-13 [facility] 1.2.840.114 [id number] Univers 12:44:07 23:59:00 Encounter Carolyn JEFFERSON 350.1.13.10 ity of [facility] 4.2.7.2.686 [place] [id number] [facility] [address] 2021-06-13 2021-06-13 Raw Products Director Lab, Ang - Db [facility] 1.2.840.1 14 [id number] Univers 10:30:00 10:59:31 Visit Carolyn Hunt HEALTH 350.1.13.10 ity of [place] 4.2.7.2.686 Hayden as JERSON?BLEA [id number] [facility] [address] MEDICAL OFFICE [facility] 2021-06-13 2021-06-[address] [facility] [id number] Univers 10:00:00 10:31:47 CAROLYN ity of [facility] 2021-06-13 2021-06-13 Nurse Cbc, Medicare Wellness Ang [facility] B 1.2.840.114 [id number] Univers 10:00:00 10:31:47 Visit Gavi Carolyn Ball HEALTH 350.1.13.10 [facility] 4.2.7.2.686 [place]den as JERSON?BLEA [id number] [facility] [address] MEDICAL OFFICE [facility] 2021-06-13 2021-06-13 Office [facility] 1.2.840.114 [id number] Univers 09:30:00 10:31:33 Visit Carolyn Ball HEALTH 350.1.13.10 i ty of [place] 4.2.7.2.686 Hayden as JERSON?BLEA [id number] [address] OFFICE [facility] 2021-06-13 2021-06-13 Outpatient R GAVI, [facility] [id number] Univers 10:30:00 10:30:00 CAROLYN ity of [facility] 2021-06-13 2021-06-13 Orders Doctor SHANNAN 1.2.840.114 [id number] Univers 00:00:00 00:00:00 Only Unassigned, ADOLFO 350.1.13.10 ity of [facility] [place] [facility] 4.2.7.2.686 Hayden as [id number] [address] 2021-06-13 2021-06-13 Telephone [facility] 1.2.139.332 [id number] Univers 00:00:00 00:00:00 Carolyn A HEALTH 350.1.13.10 i ty of [place] 4.2.7.2.686 Hayden as JERSON?BLEA [id number] [facility] [place] [address] MEDICAL OFFICE BUILDING 2021-05-30 2021-05-30 Outpatient R GAVI [facility] [id number] Univers 08:30:00 08:30:00 CAROLYN alvarado of [facility] 2021-05-25 2021-05-25 Pre Visit SHANNAN Cárdenas 1.2.295.487 [id number] Univers 00:00:00 00:00:00 Outreach Flora Mckenzie ADOLFO 350.1.13.10 ity of [facility] 4.2.7.2.686 [place] as [id number] [address] 2021-05-16 2021-05-16 Orders Doctor SHANNAN 1.2.840.114 [id number] Univers 00:00:00 00:00:00 Only Unassigned, ADOLFO 350.1.13.10 ity of [place] [facility] 4.2.7.2.686 Hayden as [id number] [address] 2021-03-05 2021-03-05 Pre Visit Wander SHANNAN 1.2.840.114 [id number] Univers 00:00:00 00:00:00 Outreach Hussain Christian ADOLFO 350.1.13.10 i ty of [facility] 4.2.7.2.686 [place] as [id number] [address] 2021-02-21 2021-02-21 Office Carlito [facility] 1.2.180.915 [id number] Univers 09:30:46 09:50:46 Visit Kong [place] 350.1.13.10 ity [facility] [place].2.7.2.[place] [phone] Wi damian peralta 085 [facility] 2021-02-21 2021-02-21 Outpatient R KONG ESTEBAN [facility] [id number] Univers 09:20:00 09:20:00 KONG ESTEBAN of [facility] 2021-01-12 2021-01-12 Raw Products Director Lab, Ang - Db [facility] 1.2.840.1 14 [id number] Univers 08:00:05 08:15:05 Visit Carolyn Hunt 350.1.13.10 ity of [place] 4.2.7.2.686 Hayden as Jerson?Blea [phone] [facility] [address] Medical Office [facility] 2021-01-12 2021-01-12 Outpatient R [facility] [id number] Univers 08:15:00 08:15:00 ity [facility] 2021-01-10 2021-01-10 [facility] [id number] Univers 11:30:00 11:30:00 CAROLYN ity [facility] 2021-01-10 2021-01-10 Office [facility] 1.2.840.114 [id number] Univers 10:33:00 11:29:06 Visit Carolyn [facility] 350.1.13.10 i ty of [place] 4.2.7.2.686 Hayden as Jerson?Blea [id number] [facility] 044 [facility] Office [facility] 2021-01-05 2021-01-05 [facility] 1.2.840.114 [id number] Univers 00:00:00 00:00:00 Carolyn [facility] Health 350.1.13.10 i ty of [place] 4.2.7.2.686 Hayden as Jerson?Blea [id number] [address] Office [facility] 2021-01-04 2021-01-04 Outpatient R KONG ESTEBAN [facility] [id number] Univers 19:30:00 19:30:00 [facility] 2021-01-04 2021-01-04 Raw Products Director 1, [facility] Sleep [facility] Bed [facility] CENTER 1. 2.840.114 [id number] Univers 14:26:40 16:56:40 Visit Kong Esteban 350.1.13. 10 ity of [place] 4.2.7.2.686 [place] [facility] [phone] [address] 2021-01-04 2021-01-04 Raw Products Director 1, [facility] Sleep Lab Bed [facility] 1. 2.840.114 [id number] Univers 14:26:40 16:56:40 Visit Atanasov, Strahil T [place] 350.1.13. 10 ity of [place] 4.2.7.2.686 [facility] [phone] [facility] [address] 2021-01-04 2021-01-04 Orders Doctor SHANNAN 1.2.840.114 [id number] Univers 00:00:00 00:00:00 Only Unassigned, ADOLFO 350.1.13.10 ity of [place] [facility] 4.2.7.2.686 [place] as [phone] [facility] 009 Branch 2021-01-04 2021-01-04 Orders Doctor SHANNAN 1.2.840.114 [id number] Univers 00:00:00 00:00:00 Only Unassigned, ADOLFO 350.1.13.10 ity of [place] [facility] 4.2.7.2.686 [place] as [phone] [facility] 009 Branch 2021-01-02 2021-01-02 Emergency Center, [facility] 1.2.840.114 [id number] Univers 10:46:00 16:55:00 Joel B [place] 350.1.13.10 i ty of [place] 4.2.7.2.686 [facility] [phone] [facility] 084 Branch 2021-01-02 2021-01-02 Emergency Karthik, [facility] 1.2.840.114 [id number] Univers 10:46:00 16:55:00 Joel B [place] 350.1.13.10 i ty of [place] 4.2.7.2.686 [facility] [phone] [facility] 084 Branch 2021-01-02 2021-01-02 Laboratory Only, Adc Test [facility] 1.2.840. 114 [id number] Univers 10:22:36 10:37:36 Only Atanasov, Strahil T [place] 350.1.13. 10 ity of [place] 4.2.7.2.686 [facility] [id number] [facility] 353 [address] 2021-01-02 2021-01-02 Laboratory Only, Adc Test [facility] 1.2.840. 114 [id number] Univers 10:22:36 10:37:36 Only Atanasov, Strahil T [place] 350.1.13. 10 ity of [place] 4.2.7.2.686 [place] [phone] [facility] [address] 2021-01-02 2021-01-02 Outpatient R [facility] [id number] Univers 10:15:00 10:15:00 ity of [facility] 2021-01-02 2021-01-02 Orders Doctor CAMPBELL 1.2.840.114 [id number] Univers 00:00:00 00:00:00 Only Unassigned, ADOLFO 350.1.13.10 ity of [place] [facility] 4.2.7.2.686 [place] as [phone] [facility] 009 Branch 2021-01-02 2021-01-02 Orders Doctor SHANNAN 1.2.840.114 [id number] Univers 00:00:00 00:00:00 Only Unassigned, ADOLFO 350.1.13.10 ity of [place] [facility] 4.2.7.2.686 [place] [phone] [facility] [address] [place] 2020-12-21 2020-12-21 Refill Feliz, 1.2.840.1 [id number] Methodi 00:00:00 00:00:[address] 3.430.2.7 Hospit a .3.008281 l .8 2020-12-06 2020-12-06 Outpatient R KONG ESTEBAN [facility] [id number] Univers 10:20:00 10:20:00 KONG ESETBAN ity [facility] 2020-12-06 2020-12-06 Office Carlito [facility] 1.2.581.072 [id number] Univers 09:53:41 10:13:41 Visit Kong [place] 350.1.13.10 ity of [place].2.7.2.686 [place] 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 10 ity of [place] 4.2.7.2.686 [facility] [phone] [facility] [address] 2020-10-24 2020-10-24 Outpatient R KONG ESTEBAN [facility] [id number] Univers 12:00:00 12:00:00 KONG ESTEBAN ity of [facility] 2020-10-24 2020-10-24 Orders Doctor CAMPBELL 1.2.840.114 [id number] Univers 00:00:00 00:00:00 Only Unassigned, ADOLFO 350.1.13.10 ity of [place] [facility] 4.2.7.2.686 [place] as [phone] [facility] 009 Branch 2020-10-20 2020-10-20 Laboratory Only, Adc Test [facility] 1.2.840. 114 [id number] Univers 10:26:01 10:41:01 Only Mar Perez 350.1.13.10 ity of [place] 4.2.7.2.686 [facility] [phone] [facility] [address] 2020-10-20 2020-10-20 Outpatient R [facility] [id number] Univers 10:30:00 10:30:00 ity of [facility] 2020-10-20 2020-10-20 Orders Doctor CAMPBELL 1.2.840.114 [id number] Univers 00:00:00 00:00:00 Only Unassigned, ADOLFO 350.1.13.10 ity of [place] [facility] 4.2.7.2.686 [place] as [phone] [facility] 009 Branch 2020-10-17 2020-10-17 [facility]patient [facility] [id number] Univers 08:30:00 08:30:00 MARISELA alvarado o f [facility] 2020-10-17 2020-10-17 [facility] 1.2.840.114 [id number] Univers 07:51:22 07:51:22 Encounter Marisela [place] 350.1.13.10 ity of [place] 4.2.7.2.686 [facility] [phone] [facility] [address] [place] 2020-10-17 2020-10-17 [facility] 1.2.840.114 [id number] Univers 07:51:11 07:51:11 Encounter Marisela [place] 350.1.13.10 ity of [place] 4.2.7.2.686 [facility] [phone] [place] [id number] [place] 2020-10-17 2020-10-17 [facility] 1.2.840.114 [id number] Univers 07:51:02 07:51:02 Encounter Marisela [place] 350.1.13.10 [place].2.686 [place] [id number] [address] 2020-10-17 2020-10-17 [facility] 1.2.840.114 [id number] Univers 07:50:29 07:50:29 Encounter Marisela [place] 350.1.13.10 ity of [place] 4.2.7.2.686 [facility] [phone] [address] 2020-10-13 2020-10-13 Office [facility] 1.2.840.114 [id number] Univers 12:40:30 14:10:03 Visit Carolyn Sampson 350.1.13.10 i ty of [place] 4.2.7.2.686 [place] as Professio [phone] [address] Office [facility] 2020-10-13 2020-10-13 [facility] [id number] Univers 13:00:00 13:00:00 CAROLYN matterinn of [facility] 2020-10-05 2020-10-05 Outpatient [facility] [id number] Univers 09:30:00 09:30:00 DEBORAHAMAN jenny o f [facility] 2020-09-24 2020-09-24 Refevelio Piper, 1.2.840.1 [id number] Methodi 00:00:00 00:00:[address] 3.430.2.7 Hospit a .3.671210 l .8 2020-09-22 2020-09-22 Office [facility] 1.2.840.114 [id number] Univers 09:19:13 09:51:42 Visit Marisela Orozcoton 350.1.13.10 ity [facility] 4.2.7.2.686 [place] [facility] [phone] [facility] 0[address] Branch [facility] 2020-09-22 2020-09-22 Outpatient R [facility] [id number] Univers 09:40:00 09:40:00 DEBORAHAMAN jenny o f [facility] 2020-09-22 2020-09-22 Orders Doctor SHANNAN 1.2.840.114 [id number] Univers 00:00:00 00:00:00 Only Unassigned, ADOLFO 350.1.13.10 [facility] 4.2.7.2.686 [place] [phone] [facility] [address] [place] 2020-09-11 2020-09-11 Emergency [facility] 1.2.753.517 [id number] Univers 11:36:00 14:51:00 Stoney [place] 350.1.13.10 i ty [facility] 4.2.7.2.686 [place] [phone] [facility] 084 Branch 2020-09-11 2020-09-11 Emergency X [facility] ERT [id number] Univers 11:36:00 14:51:00 STONEY erinn [facility] 2020-09-11 2020-09-11 Emergency X [facility] ERT [id number] Univers 11:27:00 11:27:00 ity of [facility] 2020-09-11 2020-09-11 Nurse Nicolas, 1.2.840.1 [id number] Methodi 00:00:00 00:00:00 Triage Alanis 36130.1.[address] 3.430.2.7 Hospit a .3.617124 l .8 2020-05-16 2020-05-16 Outpatient [facility] [id number] [place] 00:00:00 00:00:00 SLOAN [address] 2020-05-162020-05-16 [facility] [id number] [place] 00:00:00 00:00:[address] BRANKA [address] 2020-05-16 2020-05-16 [facility] [id number] 7635 [place] 00:00:00 00:00:00 BRANKA [address] 2020-05-08 2020-05-08 [facility] [id number] [place] 00:00:00 00:00:00 BRANKA [address] 2020-04-06 2020-04-06 Outpatient [facility] [id number] [place] 00:00:00 00:00:00 BRANKA [address] 2020-03-31 2020-03-31 Outpatient [facility] [id number] 6667 [place] 00:00:00 00:00:00 BRANKA [address] 2020-03-29 2020-03-29 Outpatient [facility] [id number] 5640 [place] 00:00:00 00:00:00 BRANKA [address] 2019-10-25 2019-10-25 Outpatient [facility] [id number] 9582 [place] 00:00:00 00:00:00 BRANKA [address] 2019-10-25 2019-10-25 [facility], [facility] 956 [id number] 823 [place] 00:00:00 00:00:00 NATHAN [address] 2019-10-22 2019-10-22 Outpatient [facility] [id number] 1869 [place] 00:00:00 00:00:00 BRANKA [address] Results Test Description Test Time Test Comments Results Result Comments Source SARS coronavirus 2 RNA [Presence] in Respiratory speci men by 2019-10-26 10:49:36 BUSHRA with probe detection Test Item Value Reference Range Interpretation Comme nts SARS coronavirus 2 RNA [Presence] in Respiratory specimen Detect ed Not-Detected by BUSHRA with probe detection (test code = 64158-7) HENRY TINSLEY BEECH BLUFF Notes Date/Time Note Provider Source 2022-12-18 09:12:10-00:00 Formatting of this note migh t be different from the original. [facility] [employer] What is she taking over the counter? Please let me know. It appears she has an asa allergy thus would not recommend nsaid therapy. Already took course of medol awilda. Recommend tylenol arthritis as needed. Follow-up with PT. 2022-12-18 09:10:41-00:00 Formatting of this note migh t be different from the original. [facility] Referral to PT entered. 2022-12-11 10:00:00-00:00 Formatting of this note is d ifferent from the original. [facility] Images from the original note were not included. Pt was fasting for blood draw. Venipuncture collection perf ormed by clean technique on the right anticubitus. Total of 1 attempts were made. Slight pressure and a bandage/dressing were applied to the site(s). The patient experienced no complications. The follow ing specimens were processed according to instructions and sent to [facility] laboratories per lab order on 12/11/2022: LT BLUE SST 3 RED LAV 2 PPT DK GREEN (LiHep) DK GREEN (SodH) HARDY DK BLUE (K2) DK BLUE (S) ACD Blood Culture NIPT/NTD T 2022-11-27 08:10:43-00:00 Formatting of this note migh t be different from the original. [facility] She was given medrol awilda sin ce not improved by nsaid therapy. Recommend taking full course medrol awilda as directed. Take tylenol arthritis as needed for pain. 2022-11-25 09:31:23-00:00 Formatting of this note migh t be different from the original. Alvina Loja RN [facility] Please review and advise. Electronically signed by Alvina Loja RN at 0 11/25/2022 9:31 AM T
--- NOTE | 2023-01-14 12:04 | RAD REPORT ---
EXAM DESCRIPTION: RAD - Knee Left 2 View - 01/14/2023 11:55 am CLINICAL HISTORY: PAIN COMPARISON: No comparisons TECHNIQUE: Left knee, 2 views. FINDINGS: No fracture, dislocation or periosteal reaction.Mild joint effusion seen. Mild tricompartm ental osteoarthritic changes. No soft tissue abnormality. Clinical concerns for internal derangement or occult bony injury could be further assessed with MR im aging. IMPRESSION: No acute osseus abnormality. Mild joint effusion. Mild tricompartmental osteoarthritic c hanges.
--- NOTE | 2023-01-14 12:44 | ER ---
Nurse's Notes [facility] Name: Madison Nunez Age: 77 yrs Sex: Female : 1945 Arrival Date: 01/14/2023 Time: 10:15 Bed 11 Private MD: Diagnosis: Pain in left knee Presentation: 01/14 11:02 Chief complaint: Patient states: Left knee pain. Coronavirus screen: At this time, the jl7 client does not indicate any symptoms associated with coronavirus-19. Ebola Screen: No symptoms or risks identified at this time. Initial Sepsis Screen: Does the patient meet any 2 criteria? No. Patient's initial sepsis screen is negative. Does the patient have a suspected source of infection? No. Patient's initial sepsis screen is negative. Risk Assessment: Do you want to hurt yourself or someone else? Patient reports no desire to harm self or others. Onset of symptoms is unknown. 11:02 Method Of Arrival: Wheelchair jl7 11:02 Acuity: HEVER 4 jl7 Triage Assessment: 11:02 General: Appears in no apparent distress. uncomfortable, Behavior is calm, cooperative, jl7 appropriate for age. Pain: Complains of pain in left knee. Historical: - Allergies: 11:02 No Known Allergies; jl7 - PMHx: 11:02 Hypertensive disorder; jl7 - Immunization history:: Adult Immunizations unknown. - Social history:: Smoking status: Patient denies any tobacco usage or history of. Vital Signs: 10:55 BP 133 / 102; Pulse 96; Resp 15; Temp 97; Pulse Ox 99% ; jl7 13:15 BP 150 / 89; Pulse 89; Resp 15; Pulse Ox 100% ; jl7 ED Course: 10:16 Patient arrived in ED. rg4 10:19 Lindy Burton NP is PHCP. aj3 10:19 Ivan Vaca DO is Attending Physician. aj3 10:54 Katelyn Pedroza, MING is Primary Nurse. jl7 11:02 Triage completed. jl7 11:02 Arm band placed on right wrist. jl7 11:57 Knee Left 2 View XRAY In Process Unspecified. EDMS 12:42 Noé De León MD is Referral Physician. aj3 12:43 Oleg Hermosillo MD is Referral Physician. aj3 13:17 No provider procedures requiring assistance completed. Patient did not have IV access jl7 during this emergency room visit. Knee immobilizer applied on left knee. Administered Medications: No medications were administered Outcome: 12:43 Discharge ordered by . aj3 13:17 Discharged to home ambulatory, jl7 13:17 Condition: stable 13:17 Discharge instructions given to patient, Instructed on discharge instructions, follow up and referral plans. medication usage, Demonstrated understanding of instructions, follow-up care, medications, Prescriptions given X 1, 13:18 Patient left the ED. jl7 Signatures: Dispatcher [employer] EDMS Mariah Ocampo rg4 Katelyn Pedroza RN RN jl7 Lindy Burton NP SALESPERSON [employer] aj3
--- NOTE | 2023-01-14 12:44 | EDPHYS ---
Physician Documentation [facility] Name: Madison Nunez Age: 77 yrs Sex: Female : 1945 Arrival Date: 01/14/2023 Time: 10:15 Bed 11 Private MD: ED Physician Ivan Vaca HPI: 01/14 11:05 This 77 yrs old Female presents to ER via Wheelchair with complaints of left knee pain. aj3 Historical: - Allergies: 11:02 No Known Allergies; jl7 - PMHx: 11:02 Hypertensive disorder; jl7 - Immunization history:: Adult Immunizations unknown. - Social history:: Smoking status: Patient denies any tobacco usage or history of. ROS: 11:05 Constitutional: Negative for fever, chills, and weight loss, Neck: Negative for injury, aj3 pain, and swelling, Cardiovascular: Negative for chest pain, palpitations, and edema, Respiratory: Negative for shortness of breath, cough, wheezing, and pleuritic chest pain, Skin: Negative for injury, rash, and discoloration, Neuro: Negative for syncope, headache, weakness, numbness, tingling, and seizure, 11:05 MS/extremity: Positive for pain, Negative for erythema, paresthesias, swelling, Exam: 11:05 Constitutional: This is a well developed, well nourished patient who is awake, alert, aj3 and in no acute distress. Cardiovascular: Regular rate and rhythm with a normal S1 and S2. No gallops, murmurs, or rubs. Normal PMI, no JVD. No pulse deficits. Respiratory: Lungs have equal breath sounds bilaterally, clear to auscultation and percussion. No rales, rhonchi or wheezes noted. No increased work of breathing, no retractions or nasal flaring. Skin: Warm, dry with normal turgor. Normal color with no rashes, no lesions, and no evidence of cellulitis. Neuro: Awake and alert, GCS 15, oriented to person, place, time, and situation. Motor strength 5/5 in all extremities. Sensory grossly intact. Normal gait. 11:05 Musculoskeletal/extremity: Exam is negative for deformity, edema, Extremities: noted in the left knee: pain, tenderness, decreased ROM, Circulation is intact in all extremities. Sensation intact. Weight bearing: able to fully bear weight, Vital Signs: 10:55 BP 133 / 102; Pulse 96; Resp 15; Temp 97; Pulse Ox 99% ; jl7 13:15 BP 150 / 89; Pulse 89; Resp 15; Pulse Ox 100% ; jl7 Procedures: 12:30 Crutch training provided to patient and/or family. Return demonstration given. aj3 MDM: 11:01 Patient medically screened. aj3 12:30 Differential diagnosis: contusion, fracture, sprain, meniscus injury. Independent aj3 interpretation of the following test(s) in the Emergency Department X-Ray: My interpretation is No acute fracture noted. Care significantly affected by the following chronic conditions: Hypertension. Counseling: I had a detailed discussion with the patient and/or guardian regarding the historical points, exam findings, and any diagnostic results supporting the discharge/admit diagnosis, radiology results, the need for outpatient follow up, a orthopedic surgeon, to return to the emergency department if symptoms worsen or persist or if there are any questions or concerns that arise at home. 12:30 Data reviewed: vital signs, nurses notes, radiologic studies, plain films, I have aj3 discussed the patient's presentation/case with the attending Emergency Department Physician;. 01/14 11:35 Order name: Knee Left 2 View XRAY; Complete Time: 12:41 aj3 01/14 12:41 Order name: Knee Immobilizer; Complete Time: 13:15 aj3 Administered Medications: No medications were administered Disposition: 20:50 I was immediately available on-site in the Emergency Department for consultation in the ms3 care of the patient. Disposition Summary: 01/14/23 12:43 Discharge Ordered Problem: new aj3 Symptoms: are unchanged aj3 Condition: Stable aj3 Diagnosis - Pain in left knee aj3 Followup: aj3 - With: Noé De León MD - When: - Reason: Recheck today's complaints, Re-evaluation by your physician Followup: aj3 - With: Oleg Hermosillo MD - When: - Reason: Further diagnostic work-up Discharge Instructions: - Discharge Summary Sheet aj3 - Arthritis aj3 Forms: - Medication Reconciliation Form aj3 - Thank You Letter aj3 - Antibiotic Education aj3 - Prescription Opioid Use aj3 - Patient Portal Instructions aj3 - Leadership Thank You Letter aj3 Signatures: Dispatcher [employer] Katelyn Awad RN RN jl7 Ivan Vaca DO DO ms3 Lindy Burton, INTERPRETATIVE DANCER INTERPRETATIVE DANCER aj3 Corrections: (The following items were deleted from the chart) 20:34 12:15 Crutch training provided to patient and/or family. Return demonstration given aj3 aj3
[2023-01-14 15:11] VITALS: BP 150/89; O2SAT 100
== END 2023-01-14 13:18 | disposition home or self-care (01) ==
LOC: ER 10:15
DX: M25.562 Pain in left knee (principal)